=== PATIENT | female | born 1975 | race Caucasian/White ===

== ENCOUNTER 2019-09-25 14:29 | Emergency (ER) | payer SELFPAY ==
[2019-09-25 15:13] VITALS: BP 140/88; PULSE 93; RESP 16; TEMP 37.1; O2SAT 97; BMI 28.0
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
--- NOTE | 2019-09-25 16:19 | DCPLANNER ---
[employer] manager was asked to speak with patient about different rehab centers. [employer] manager gave patient a list of different rehab centers, and the phone number to AA in [place].
[2019-09-25 16:46] VITALS: PULSE 80; RESP 18; O2SAT 98
== END 2019-09-25 16:52 | disposition home or self-care (01) ==
PROVIDERS: Emergency Provider Family Medicine; Family Provider Nurse Practitioner; PCP Nurse Practitioner
DX: F10.10 Alcohol abuse, uncomplicated (principal); F41.8 Other specified anxiety disorders
CPT/HCPCS: 99281

== ENCOUNTER 2019-09-25 14:57 | Emergency (ER) | payer SELFPAY | END 2019-09-25 15:25 | LOC: ER 10-03 07:45 | PROVIDERS: Emergency Provider Physician Assistant; Family Provider Nurse Practitioner; PCP Nurse Practitioner | DX: Z53.21 Procedure and treatment not carried out due to patient leaving prior to being seen by health care provider (principal) | CPT/HCPCS: 99281 ==

== ENCOUNTER 2019-12-18 23:40 | Emergency (ER) | payer SELFPAY ==
[2019-12-18 23:56] VITALS: BP 121/71; PULSE 75; RESP 14; TEMP 36.4; O2SAT 99; BMI 29.2
== END 2019-12-19 01:32 ==
LOC: ER 12-19 00:19
PROVIDERS: Emergency Provider Nurse Practitioner Family; Family Provider Nurse Practitioner; PCP Nurse Practitioner
DX: Z53.21 Procedure and treatment not carried out due to patient leaving prior to being seen by health care provider (principal)
CPT/HCPCS: 99281

== ENCOUNTER 2020-04-29 09:05 | Emergency (ER) | payer MEDICAID, SELFPAY ==
[2020-04-29 09:24] VITALS: BP 122/85; PULSE 74; RESP 16; TEMP 36; O2SAT 97; BMI 27.4
== END 2020-04-29 09:35 | disposition left against medical advice (07) ==
LOC: ER 09:43
PROVIDERS: PCP Nurse Practitioner
DX: Z53.21 Procedure and treatment not carried out due to patient leaving prior to being seen by health care provider (principal)
CPT/HCPCS: 99281

== ENCOUNTER 2020-05-12 18:09 | Emergency (ER) | payer MEDICAID, SELFPAY ==
[2020-05-12 18:28] VITALS: BP 153/86; PULSE 85; RESP 16; TEMP 36.3; O2SAT 98; BMI 28.5
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
== END 2020-05-12 19:14 | disposition home or self-care (01) ==
PROVIDERS: Emergency Provider Physician Assistant; PCP Physician Assistant
DX: M54.5 Low back pain (principal); Z86.19 Personal history of other infectious and parasitic diseases
CPT/HCPCS: 12345; 99281; 99282

== ENCOUNTER 2020-05-21 19:52 | Emergency (ER) | payer MEDICAID, SELFPAY ==
[2020-05-21 19:59] VITALS: BP 157/106; PULSE 87; RESP 18; TEMP 36.7; O2SAT 98; BMI 27.2
--- NOTE | 2020-05-21 20:09 | XRR_ITS ---
PROCEDURE INFORMATION: Exam: XR Chest, 1 View Exam date and time: 05/21/2020 8:50 PM Age: 44 years old Clinical indication: Shortness of breath; Chest pain; Patient HX: Cp, weakness, SOB, increased hr, lower back pain TECHNIQUE: Imaging protocol: XR of the chest Views: 1 view. COMPARISON: CR Chest 1 [place] [id number] 02/08/2019 1:10 AM FINDINGS: Lungs: Unremarkable. No consolidation. Pleural space: Unremarkable. No pleural effusion. No pneumothorax. Heart/Mediastinum: Unremarkable. No cardiomegaly. Bones/joints: Unremarkable. XR/XR chest 1V portable [id number] IMPRESSION: No acute findings.
--- NOTE | 2020-05-21 20:09 | ECG_ITS ---
[facility] Test Date: 2020-05-21 Pat Name: Alondra Lange Department: Room: Gender: Female Surgical Pathologist: : 1975 Requested By: Sebas Cardenas Order Number: [id number] Suzanna MD: Mateus Hanna M.D. Measurements Intervals [place] Rate: 80 P: 77 MN: 181 QRS: 53 QRSD: 86 T: 46 QT: 371 QTc: 428 Interpretive Statements SINUS RHYTHM WITH SINUS ARRHYTHMIA POSSIBLE LEFT ATRIAL ENLARGEMENT [-0.1mV P WAVE IN V1/V2] Compared to ECG 02/08/2019 00:40:35 No significant changes Electronically Signed On 05-23-2020 20:31:11 CDT by Mateus Hanna M.D. [email or web address] [facility]urecop[facility] centerAgenusselect [facility].[employer]/store/OM/[id number]
[2020-05-21 21:42] VITALS: BP 146/96; PULSE 89; RESP 12; O2SAT 96
[2020-05-21 21:49] LABS: Basophils % 0.4 %; Eosinophils # 0.1 10^3/uL (0.0-0.8); Eosinophils % 0.8 %; Hematocrit 40.3 % (37.0-47.0); Hemoglobin 13.3 g/dL (11.5-15.3); Lymphocytes # 2.4 10^3/uL (0.8-4.8); Lymphocytes % 28.9 %; Mean Corpuscular Hemoglobin 31.1 pg (28.0-34.0); Mean Corpuscular Volume 94.4 fL (81-99); Monocytes # 0.7 10^3/uL (0.2-0.9); Monocytes % 7.7 %; Neutrophils # 5.21 10^3/uL (1.8-7.7); Neutrophils % 62.1 %; Nucleated Red Blood Cells % 0 %; Platelet Count 318 10^3/cmm (130-400); Red Blood Count 4.27 10^6/uL (4.1-5.3); Red Cell Distribution Width 12.2 % (12.1-15.1); White Blood Count 8.4 10^3/uL (4.0-10.0)
[2020-05-21 22:02] VITALS: PULSE 83; RESP 10; O2SAT 99
[2020-05-21 22:06] LABS: Alanine Aminotransferase 12 U/L (0-33); Albumin Level 4.9 g/dL (3.5-5.2); Alkaline Phosphatase 50 IU/L (35-105); Anion Gap 14.9 (5-19); Aspartate Amino Transferase 18 U/L (0-32); Blood Urea Nitrogen 11 mg/dL (6-20); Calcium 10.3 mg/dL (8.5-10.5); Carbon Dioxide 23 mmol/L (22-29); Chloride 104 mmol/L (98-107); Globulin 2.2 g/dL (1.3-4.6); Glomerular Filtration Rate 108.6 mL/min (90-130); Glucose 105 mg/dL (65-115); Osmolality Calculated 286 mOsm/kg (285-295); Potassium 3.9 mmol/L (3.5-5.1); Sodium 138 mmol/L (136-145); Total Bilirubin 0.2 mg/dL (0.15-1.2); Total Protein 7.1 g/dL (6.6-8.7)
[2020-05-21 22:09] LABS: Troponin(5th) Baseline 6 ng/L (0-10)
[2020-05-21 22:59] VITALS: PULSE 78; RESP 16; O2SAT 98
--- NOTE | 2020-05-21 23:41 | W.ED.CHESTPA ---
HPI - Chest Pain General: Chief Complaint: Chest Pain Stated Complaint: cp Time Seen by Provider: 05/21/20 21:36 History of Present Illness: HPI narrative: 44-year-old female with history of anxiety. She presents with chest discomfort and palpitations, on and off. They were worse this evening. She notes that is somewhat related to smoking marijuana as she has had a couple of episodes today after smoking. She recently received medical marijuana for some pain related to a back injury. She describes palpitations more than pain, although she has pain at times. She gets short of breath when these palpitations come on. Currently she is feeling a bit improved. She has not had any cough, fever, sputum production. She notes that she has family members with WPW. MD complaint: chest pain and chest discomfort Associated symptoms: Reports palpitations; Deny abdominal pain, dyspnea, fever(s), nausea or vomiting Review of Systems Const: Denies: fever(s) or chills ENMT: Denies: odynophagia, swelling of lips/tongue, epistaxis or sinus pain Card: Reports: chest pain, palpitations and dyspnea on exertion; Denies: irregular heart rhythm, edema, swelling of feet/ankles or orthopnea Resp: Denies: dyspnea, productive cough, non-productive cough or wheezing GI: Denies: abdominal pain, nausea or vomiting : Denies: dysuria, urinary frequency, urinary urgency or hematuria Musc: Reports: back pain; Denies: neck pain or joint redness Skin/Breast: Denies: rash or erythema Neuro: Denies: headache(s), dizziness or vertigo Psych: Reports: anxiety PFSH ED PFSH: Medical History (Updated 05/21/20 @ 22:48 by Silviano Carlin DO) Chronic pain Chronic pain disorder Gastroenteritis Genital herpes Glycosuria Hepatitis C History of endometrial hyperplasia Surgical History History of tonsillectomy and adenoidectomy Hx of hysterectomy Hx of tubal ligation Family History Other Cancer Heart disease Social History Smoking and tobacco status: never smoked Alcohol intake: former Current occupation: unemployed History of recent travel: No Physical Exam Const: GENERAL APPEARANCE: well developed ORIENTATION/CONSCIOUSNESS: Yes oriented to person, Yes oriented to place and Yes oriented to time HENMT: COMMON NORMALS: normocephalic, external ears normal and Normal external nose present HEAD & SCALP: normocephalic NOSE: Normal external nose present and No nasal discharge present EXTERNAL EAR: Yes external ears normal Eye: COMMON NORMALS: Equal, round and reactive pupils present, EOMs intact bilaterally and conjunctivae normal EYELID: eyelids normal CONJUNCTIVA: Yes conjunctivae normal PUPIL: Yes Equal, round and reactive pupils present Neck/C-Spine: GENERAL: No tracheal deviation Chest: COMMONS NORMALS: normal inspection of the chest CHEST: No tenderness Resp: COMMON NORMALS: clear to auscultation bilaterally EFFORT & INSPECTION: No tachypneic, No respiratory distress, No retractions, No uses accessory muscles and No tracheal deviation AUSCULTATION: clear to auscultation bilaterally, no rhonchi, no wheezes and lung sounds not diminished Cardio: COMMON NORMALS: regular rate and regular rhythm RATE: regular rate RHYTHM: regular rhythm HEART SOUNDS: no murmurs PERIPHERAL PULSES: radial pulses present GI: INSPECTION: No abdominal distension AUSCULTATION: No Hyperactive bowel sounds present and No Hypoactive bowel sounds present PALPATION: No Guarding due to palpation present (GI) and No Rigid due to palpation PERCUSSION: no dullness to percussion and no tympanic to percussion Neuro: SENSORIUM/ORIENTATION: Yes oriented to person, Yes oriented to place and Yes oriented to time Psych: COMMON NORMALS: mental status grossly normal Skin: COMMON NORMALS: no rashes or lesions noted GENERAL SKIN EXAM: no rashes or lesions noted Course Vital Signs: Vital signs: Vital Signs Temperature 98.1 F 05/21/20 19:59 Pulse Rate 78 05/21/20 22:59 Respiratory Rate 16 05/21/20 22:59 Blood Pressure 146/96 05/21/20 21:42 Pulse Oximetry 98 05/21/20 22:59 MDM - Chest Pain MDM Narrative: Medical decision making narrative: Patient has been here more than 2 hours prior to the lab being drawn. Her troponin II hours is normal. EKG shows a sinus rhythm not acute ST change. If you leads, there appears to be a welted type wave, but the NH interval is not shortened and this is not present in every lead. He does have a family history of WPW she says. White blood cell count is 8.4. Hemoglobin 13. Other labs are normal. This x-ray is normal. Because of her family history, and slight EKG change, she will be ordered an outpatient event monitor to be worn. There is a chance she could be experiencing a reentrant rhythm that self terminates. She knows to return for any new or worsening symptoms. Lab Data: Labs: Lab Results 05/21/20 05/21/20 05/21/20 Range/Units 21:41 21:41 21:41 WBC 8.4 (4.0-10.0) 10^3/ uL RBC 4.27 (4.1-5.3) 10^6/u L Hgb 13.3 (11.5-15.3) g/dL Hct 40.3 (37.0-47.0) % MCV 94.4 (81-99) fL MCH 31.1 (28.0-34.0) pg MCHC 33.0 (30.0-36.0) g/dL RDW 12.2 (12.1-15.1) % Plt Count 318 (130-400) 10^3/c mm MPV 10.0 (7.4-10.4) fL Neut % (Auto) 62.1 % Lymph % (Auto) 28.9 % Coke % (Auto) 7.7 % Eos % (Auto) 0.8 % Baso % (Auto) 0.4 % Neut # (Auto) 5.21 (1.8-7.7) 10^3/u L Lymph # (Auto) 2.4 (0.8-4.8) 10^3/u L Coke # (Auto) 0.7 (0.2-0.9) 10^3/u L Eos # (Auto) 0.1 (0.0-0.8) 10^3/u L Baso # (Auto) 0.0 (0.0-0.1) 10^3/u L Nucleated RBC % (a uto) 0 % Nucleated RBCs # 0.0 /100WBC Sodium 138 (136-145) mmol/L Potassium 3.9 (3.5-5.1) mmol/L Chloride 104 (98-107) mmol/L Carbon Dioxide 23 (22-29) mmol/L Anion Gap 14.9 (5-19) BUN 11 (6-20) mg/dL Creatinine 0.6 (0.5-0.9) mg/dL GFR Calculation 108.6 (90-130) mL/min Glucose 105 (65-115) mg/dL Calculated Osmolal ity 286 (285-295) mOsm/k g Calcium 10.3 (8.5-10.5) mg/dL Total Bilirubin 0.2 (0.15-1.2) mg/dL AST 18 (0-32) U/L ALT 12 (0-33) U/L Alkaline Phosphata se 50 (35-105) IU/L Troponin T Baselin e 6 (0-10) ng/L Total Protein 7.1 (6.6-8.7) g/dL Albumin 4.9 (3.5-5.2) g/dL Globulin 2.2 (1.3-4.6) g/dL Discharge Plan Discharge Patient Disposition: Home Clinical Impression: Chest pain Qualifiers: Chest pain type: unspecified Qualified Code(s): R07.9 - Chest pain, unspecified Condition: Stable Prescriptions: No Action Medical Marijuana See Rx Instructions .ROUTE .COMPLEX RF: 0 cyclobenzaprine 5 mg tablet 5 mg PO BEDTIME RF: 0 Discharge Orders: Discharge Order (Routine); Ordered 05/21/20 Ordered By: Silviano Carlin Referrals: Jazmin Giron PA-C [Primary Care Provider] - 4-7 days Patient Instructions: Chest Pain (ED), Palpitations (ED) Activity Restrictions/Additional Instructions: Consider abstaining from marijuana use, as it may be a cause of your symptoms. An outpatient event monitor will be ordered for you. You should get a call from case management on Sunday or Sunday for an appointment to come get fitted. Results should go to your primary physician. Discharge Date/Time: 05/21/20 23:01 Coding Level of Care Code ED Underwriting Internship for Tu Amezcua
--- NOTE | 2020-05-29 08:44 | DCPLANNER ---
Patient has an appointment scheduled for Monday, June 01, 2020 at 1:30 with [facility].
--- NOTE | 2020-06-11 16:18 | DCPLANNER ---
Patient had a follow up appointment scheduled for 06.01.20 with [facility] for an event monitor - patient did not attend appointment.
== END 2020-05-21 23:01 | disposition home or self-care (01) ==
PROVIDERS: Emergency Medicine; Emergency Provider Emergency Medicine; PCP Physician Assistant
DX: R07.9 Chest pain, unspecified (principal); Z86.19 Personal history of other infectious and parasitic diseases
CPT/HCPCS: 12345; 36415; 71045; 80053; 84484; 85025; 93005; 99281; 99283

== ENCOUNTER 2020-05-23 15:57 | Emergency (ER) | payer MEDICAID, SELFPAY ==
--- NOTE | 2020-05-23 16:04 | XRR_ITS ---
PROCEDURE INFORMATION: Exam: XR Chest, 1 View Exam date and time: 05/23/2020 4:10 PM Age: 44 years old Clinical indication: Chest pain; Type not specified; Additional info: Cp TECHNIQUE: Imaging protocol: XR of the chest Views: 1 view. COMPARISON: CR XR chest 1V portable [id number] 05/21/2020 8:40 PM FINDINGS: Lungs: Unremarkable. No consolidation. Pleural space: Unremarkable. No pleural effusion. No pneumothorax. Heart/Mediastinum: Unremarkable. No cardiomegaly. Bones/joints: Unremarkable. XR/XR chest 1V portable [id number] IMPRESSION: No acute findings.
[2020-05-23 16:25] VITALS: BP 131/88; PULSE 118; RESP 14; TEMP 36.9; O2SAT 98; BMI 26.4
--- NOTE | 2020-05-23 17:48 | ED_ITS ---
HPI - Arrhythmia/Palpitations General: Chief Complaint: Arrhythmia/Palpitations Stated Complaint: RAPID HEART RATE Time Seen by Provider: 05/23/20 17:20 History of Present Illness: HPI narrative: 44-year-old female presents with palpitations. She reports that she had them earlier today. Patient was seen 2 days ago for the exact same symptoms. Both times it started after she used some of her medical marijuana. Patient reports her symptoms are now better. Patient had a significant negative work-up 2 days ago. She denies any other drug use. Patient denies any shortness of breath, fever, chills, cough or other systemic complaints. MD complaint: rapid heart beat and palpitations Associated symptoms: Reports anxiety; Deny nausea or vomiting Review of Systems Const: Denies: fever(s) or chills Card: Reports: palpitations; Denies: chest pain, irregular heart rhythm or lightheadedness Resp: Denies: dyspnea, productive cough, non-productive cough, wheezing or pain on inspiration GI: Denies: abdominal pain, nausea or vomiting : Denies: flank pain Skin/Breast: Denies: rash or pruritus Neuro: Denies: headache(s) or numbness in extremities Psych: Reports: anxiety All/Imm: Denies: urticaria or throat swelling PFSH ED PFSH: Medical History Chronic pain Chronic pain disorder Gastroenteritis Genital herpes Glycosuria Hepatitis C History of endometrial hyperplasia Surgical History History of tonsillectomy and adenoidectomy Hx of hysterectomy Hx of tubal ligation Family History Other Cancer Heart disease Social History Smoking and tobacco status: never smoked Alcohol intake: former Current occupation: unemployed History of recent travel: No Physical Exam Const: COMMON NORMALS: no acute distress, average body habitus and patient oriented x3 HENMT: COMMON NORMALS: normocephalic and atraumatic HEAD & SCALP: normocephalic and atraumatic Neck/C-Spine: COMMON NORMALS: full ROM and no meningeal signs Resp: COMMON NORMALS: normal respiratory effort, No retractions, No use of accessory muscles and clear to auscultation bilaterally AUSCULTATION: clear to auscultation bilaterally Cardio: COMMON NORMALS: regular rate, regular rhythm and Peripheral pulses 2+ throughout RATE: regular rate RHYTHM: regular rhythm PERIPHERAL PULSES: Peripheral pulses 2+ throughout GI: COMMON NORMALS: Normal to inspection, nondistended, normoactive bowel sounds present, Soft to palpation and non-tender PALPATION: Yes Soft to palpation : COMMON NORMALS: Yes no CVA tenderness BLADDER/KIDNEY EXAM: Yes no CVA tenderness Back/Pelvis: COMMON NORMALS: no CVA tenderness Neuro: COMMON NORMALS: patient oriented x3, CN's II-XII intact bilaterally, moves all extremities and no focal motor deficits MENINGEAL SIGNS: Yes no meningeal signs Psych: COMMON NORMALS: mental status grossly normal and speech normal APPEARANCE: Yes grossly normal SPEECH: Yes normal speech MOOD & AFFECT: Yes anxious Skin: COMMON NORMALS: no rashes or lesions noted GENERAL SKIN EXAM: no rashes or lesions noted Course Vital Signs: Vital signs: Vital Signs Temperature 98.4 F 05/23/20 16:25 Pulse Rate 89 05/23/20 19:35 Respiratory Rate 18 05/23/20 19:35 Blood Pressure 132/89 05/23/20 19:35 Pulse Oximetry 98 05/23/20 19:35 MDM - Arrhythmia/Palpitations MDM Narrative: Medical decision making narrative: Patient with no acute findings on EKG, labs. Patient symptoms similar to 2 days ago. Discussed with her is likely a result of her medical marijuana use and her anxiety. I recommend she follow-up with her prescribing physician to discuss the side effects. Patient is otherwise stable and will be discharged home Lab Data: Labs: Lab Results 05/23/20 05/23/20 05/23/20 Range/Units 17:47 17:47 17:47 WBC 7.6 (4.0-10.0) 10^3/ uL RBC 4.52 (4.1-5.3) 10^6/u L Hgb 14.1 (11.5-15.3) g/dL Hct 43.4 (37.0-47.0) % MCV 96.0 (81-99) fL MCH 31.2 (28.0-34.0) pg MCHC 32.5 (30.0-36.0) g/dL RDW 12.2 (12.1-15.1) % Plt Count 315 (130-400) 10^3/c mm MPV 10.4 (7.4-10.4) fL Neut % (Auto) 72.0 % Lymph % (Auto) 19.5 % Crisp % (Auto) 7.1 % Eos % (Auto) 0.8 % Baso % (Auto) 0.3 % Neut # (Auto) 5.48 (1.8-7.7) 10^3/u L Lymph # (Auto) 1.5 (0.8-4.8) 10^3/u L Crisp # (Auto) 0.5 (0.2-0.9) 10^3/u L Eos # (Auto) 0.1 (0.0-0.8) 10^3/u L Baso # (Auto) 0.0 (0.0-0.1) 10^3/u L Nucleated RBC % (a uto) 0 % Nucleated RBCs # 0.0 /100WBC Sodium 141 (136-145) mmol/L Potassium 4.3 (3.5-5.1) mmol/L Chloride 104 (98-107) mmol/L Carbon Dioxide 25 (22-29) mmol/L Anion Gap 16.3 (5-19) BUN 10 (6-20) mg/dL Creatinine 0.7 (0.5-0.9) mg/dL GFR Calculation 90.9 (90-130) mL/min Glucose 106 (65-115) mg/dL Calculated Osmolal ity 291 (285-295) mOsm/k g Calcium 9.9 (8.5-10.5) mg/dL Magnesium 2.0 (1.7-2.3) mg/dL Total Bilirubin 0.2 (0.15-1.2) mg/dL AST 18 (0-32) U/L ALT 14 (0-33) U/L Alkaline Phosphata se 54 (35-105) IU/L Troponin T Baselin e 6 (0-10) ng/L Total Protein 7.6 (6.6-8.7) g/dL Albumin 5.2 (3.5-5.2) g/dL Globulin 2.4 (1.3-4.6) g/dL TSH 0.66 (0.27-4.20) uIU/ mL Discharge Plan Discharge Patient Disposition: Home Clinical Impression: Palpitations, Anxiety, Marijuana use Condition: Stable Prescriptions: No Action Medical Marijuana See Rx Instructions .ROUTE .COMPLEX RF: 0 cyclobenzaprine 5 mg tablet 5 mg PO BEDTIME RF: 0 Discharge Orders: Discharge Order (Routine); Ordered 05/23/20 Ordered By: León Murray Referrals: Jazmin Giron PA-C [Primary Care Provider] - Discharge Diet: Regular Discharge Activity: Resume usual activity Patient Instructions: Palpitations (ED), Medicinal Use of Cannabis (ED), Anxiety (ED) Activity Restrictions/Additional Instructions: Follow-up with your primary care provider in 2 to 3 days for continuation of care and recheck of today's symptoms Discharge Date/Time: 05/23/20 19:39 Coding Level of Care Code ED Transportation Economics Teacher for Tu Fwd Exam Comprehensive
[2020-05-23 17:55] LABS: Basophils % 0.3 %; Eosinophils # 0.1 10^3/uL (0.0-0.8); Eosinophils % 0.8 %; Hematocrit 43.4 % (37.0-47.0); Hemoglobin 14.1 g/dL (11.5-15.3); Lymphocytes # 1.5 10^3/uL (0.8-4.8); Lymphocytes % 19.5 %; Mean Corpuscular HGB Conc 32.5 g/dL (30.0-36.0); Mean Corpuscular Hemoglobin 31.2 pg (28.0-34.0); Mean Platelet Volume 10.4 fL (7.4-10.4); Monocytes # 0.5 10^3/uL (0.2-0.9); Monocytes % 7.1 %; Neutrophils # 5.48 10^3/uL (1.8-7.7); Nucleated Red Blood Cells % 0 %; Platelet Count 315 10^3/cmm (130-400); Red Blood Count 4.52 10^6/uL (4.1-5.3); Red Cell Distribution Width 12.2 % (12.1-15.1); White Blood Count 7.6 10^3/uL (4.0-10.0)
[2020-05-23 18:22] LABS: Troponin(5th) Baseline 6 ng/L (0-10)
[2020-05-23 18:32] LABS: Alanine Aminotransferase 14 U/L (0-33); Albumin Level 5.2 g/dL (3.5-5.2); Alkaline Phosphatase 54 IU/L (35-105); Aspartate Amino Transferase 18 U/L (0-32); Blood Urea Nitrogen 10 mg/dL (6-20); Calcium 9.9 mg/dL (8.5-10.5); Carbon Dioxide 25 mmol/L (22-29); Chloride 104 mmol/L (98-107); Globulin 2.4 g/dL (1.3-4.6); Glomerular Filtration Rate 90.9 mL/min (90-130); Glucose 106 mg/dL (65-115); Osmolality Calculated 291 mOsm/kg (285-295); Sodium 141 mmol/L (136-145); Thyroid Stimulating Hormone 0.66 uIU/mL (0.27-4.20); Total Bilirubin 0.2 mg/dL (0.15-1.2); Total Protein 7.6 g/dL (6.6-8.7)
[2020-05-23 18:41] LABS: Anion Gap 16.3 (5-19); Potassium 4.3 mmol/L (3.5-5.1)
[2020-05-23 19:35] VITALS: BP 132/89; PULSE 89; RESP 18; O2SAT 98
--- NOTE | 2020-05-23 22:04 | ECG_ITS ---
[facility] Test Date: 2020-05-23 Pat Name: Alondra Lange Department: Room: Gender: Female Final Cleaner: ANH FREEMANB: 1975 Requested By: Marlee Kyle Order Number: [id number] Suzanna MD: Mateus Hanna M.D. Measurements Intervals [place] Rate: 105 P: 80 WA: 136 QRS: 55 QRSD: 85 T: 52 QT: 328 QTc: 434 Interpretive Statements SINUS TACHYCARDIA NONSPECIFIC T-WAVE ABNORMALITY ABNORMAL RHYTHM ECG Compared to ECG 05/21/2020 20:26:01 T-wave abnormality now present Sinus rhythm no longer present Sinus arrhythmia no longer present Electronically Signed On 05-24-2020 17:43:02 CDT by Mateus Hanna M.D. [id number]
--- NOTE | 2020-05-24 15:17 | DCPLANNER ---
e commerce project manager had message to schedule an outpatient event monitor for patient. e commerce project manager faxed order to [facility], clinic will call patient with appointment information.
== END 2020-05-23 19:39 | disposition home or self-care (01) ==
PROVIDERS: Registered Nurse; Emergency Provider Student in an Organized Health Care Education/Training Program; PCP Physician Assistant
DX: R00.2 Palpitations (principal); F41.9 Anxiety disorder, unspecified; F12.90 Cannabis use, unspecified, uncomplicated; Z86.19 Personal history of other infectious and parasitic diseases
CPT/HCPCS: 12345; 71045; 80053; 83735; 84443; 84484; 85025; 93005; 99281; 99283

== ENCOUNTER 2020-09-09 01:33 | Emergency (ER) | payer MEDICAID, SELFPAY ==
[2020-09-09 01:40] VITALS: BP 152/80; PULSE 91; RESP 17; TEMP 36.8; O2SAT 97; BMI 25.4
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
--- NOTE | 2020-09-09 01:49 | XR_ITS ---
WS: [id number] Thoracic spine, 3 views, 09/09/2020 Clinical Data: fall; pain Comparison: Thoracic spine, 04/28/2013. Findings: No compression fractures are seen. The disc heights are normal. There is a slight dextroscoliosis of the midthoracic spine. The paravertebral regions are normal. XR/XR thoracic spine 3V* [id number] Impression: Negative thoracic spine.
== END 2020-09-09 03:03 | disposition home or self-care (01) ==
PROVIDERS: Emergency Provider Physician Assistant; PCP Physician Assistant
DX: M54.6 Pain in thoracic spine (principal); Y04.8XXA Assault by other bodily force, initial encounter; Z86.19 Personal history of other infectious and parasitic diseases
CPT/HCPCS: 12345; 72072; 99281; 99282

== ENCOUNTER 2020-10-17 18:35 | Emergency (ER) | payer MEDICAID, SELFPAY ==
[2020-10-17 18:52] VITALS: BP 122/82; PULSE 79; RESP 18; TEMP 36.6; O2SAT 97; BMI 27.0
[2020-10-17 19:11] VITALS: BP 134/83; PULSE 82; RESP 16; O2SAT 97
--- NOTE | 2020-10-17 19:14 | ED_ITS ---
HPI - Ear Problem General: Chief complaint: General Medical Stated complaint: BILATERAL EAR PAIN Time Seen by Provider: 10/17/20 18:59 Source: patient Mode of arrival: ambulatory Limitations: no limitations History of Present Illness: HPI Narrative: Patient is a 45-year-old female who presents to ED today with a complaint of bilateral brown drainage from her ears. She states they feel full. She is also complaining of pressure to her sinuses. She is reporting nasal discharge. She states she does have a history of allergies that she treats with Benadryl. Patient denies sore throat. She is not running fevers. She has not had any trauma to her ears. She is not complaining of hearing loss or tinnitus. She does not complain of dizziness or any gait abnormalities. No visual changes. Location: bilateral (R>L) Duration: constant Severity: mild Relieving factors: nothing Exacerbating factors: nothing Associated symptoms: Denies ear or mastoid pain, fever(s), headache(s), neck pain or tinnitus Treatment prior to arrival: none Review of Systems Const: Denies: fever(s), chills, body aches, change in appetite, change in weight, fatigue or malaise Eyes: Denies: change in vision, blurry vision, photophobia, floaters or seeing flashes ENMT: Reports: ear discharge, change in hearing, nasal discharge, nasal congestion and sinus pain; Denies: throat pain, odynophagia, swelling of lips/tongue, oral sores, dental pain, ear or mastoid pain, tinnitus, disequilibrium, nasal obstruction, epistaxis or post nasal drip Card: Denies: chest pain, palpitations, irregular heart rhythm, edema, swelling of feet/ankles, lightheadedness, syncope, pre-syncope, dyspnea on exertion or orthopnea Resp: Denies: dyspnea, productive cough, non-productive cough, wheezing, hemoptysis or chest congestion GI: Denies: abdominal pain, nausea, vomiting or diarrhea Musc: Denies: neck pain or back pain Skin/Breast: Denies: rash Neuro: Denies: headache(s), numbness in extremities, weakness in extremities, sensory changes, dizziness, vertigo or confusion [facility] ED PFSH: Medical History (Updated 10/17/20 @ 19:17 by RAYSA Cano) Chronic pain Chronic pain disorder Gastroenteritis Genital herpes Glycosuria Hepatitis C History of endometrial hyperplasia Surgical History History of tonsillectomy and adenoidectomy Hx of hysterectomy Hx of tubal ligation Family History Other Cancer Heart disease Social History Smoking and tobacco status: never smoked Alcohol intake: former Current occupation: unemployed History of recent travel: No Physical Exam Const: COMMON NORMALS: no acute distress, average body habitus, patient oriented x3, no limitations, healthy appearing, alert and well nourished GENERAL APPEARANCE: cooperative ORIENTATION/CONSCIOUSNESS: Yes awake, Yes oriented to person, Yes oriented to place and Yes oriented to time HENMT: COMMON NORMALS: normocephalic, atraumatic, hearing grossly normal bilaterally, external ears normal, Normal external nose present, Normal nasal mucous membranes and turbinates present, moist oral mucous membranes, oropharynx normal, dentition normal and gingiva normal HEAD & SCALP: normal to inspection, normocephalic and atraumatic FACE & SINUS: sinus tenderness frontal and maxillary NOSE: Normal external nose present and Normal nasal mucous membranes and turbinates present EXTERNAL EAR: Yes external ears normal and Yes mastoids normal EXTERNAL AUDITORY CANAL: Abnormal EAC present EAC laterality: bilateral excessive cerumen TYMPANIC MEMBRANE: TM normal on the left and TM abnormal TM laterality: right Details: fluid behind TM MOUTH: Normal oral and palatal mucosa present, lip normal and tongue normal THROAT: posterior oropharynx normal, tonsils normal and uvula midline Eye: COMMON NORMALS: Equal, round and reactive pupils present and EOMs intact bilaterally GENERAL EYE: appearance normal, both eyes and all related structures and normal light reflex PUPIL: Yes Equal, round and reactive pupils present DIRECT OPHTHALMOSCOPY: Yes normal light reflex OTHER: no nystagmus Neck/C-Spine: COMMON NORMALS: full ROM, no lymphadenopathy and no meningeal signs Neuro: EDGAR COMA SCALE: document GCS findings Edgar coma scale eye opening: Spontaneous Edgar coma scale verbal response: Orientated Edgar coma scale motor response: Obey commands [address] coma scale total score: 15 COMMON NORMALS: patient oriented x3, CN's II-XII intact bilaterally, moves all extremities, no focal motor deficits and no sensory deficits noted SENSORIUM/ORIENTATION: Yes alert, Yes oriented to person, Yes oriented to place and Yes oriented to time MENINGEAL SIGNS: Yes no meningeal signs Procedures Ear Wax Removal Both Ears: Results: Re-examined: cerumen removed completely TM Examination: TM(s) intact, normal appearance Ear Canal Exam: atraumatic Patient Tolerated Procedure: well Complications: no problems Technique: ear canal curetted Course Vital Signs: Vital signs: Vital Signs Temperature 97.8 F 10/17/20 18:52 Pulse Rate 82 10/17/20 19:11 Respiratory Rate 16 10/17/20 19:11 Blood Pressure 134/83 10/17/20 19:11 Pulse Oximetry 97 10/17/20 19:11 MDM - Ear MDM Narrative: Medical decision making narrative: Pts symptoms consistent with sinusitis. She had bilateral partial cerumen impaction that were cleaned. Serous otitis on R. Will place on Levaquin (initially RX Augmentin but she then told us she has allergy to penicillins). Return to ED precautions given. Discharge Plan Discharge Patient Disposition: Home Clinical Impression: Sinusitis Qualifiers: Sinusitis location: maxillary Chronicity: acute Recurrence: non-recurrent Qualified Code(s): J01.00 - Acute maxillary sinusitis, unspecified Acute serous otitis media Qualifiers: Laterality: right Recurrence: non-recurrent Qualified Code(s): H65.01 - Acute serous otitis media, right ear Condition: Stable Prescriptions: New levofloxacin 500 mg tablet 500 mg PO DAILY 5 Days Qty: 5 RF: 0 No Action Medical Marijuana See Rx Instructions .ROUTE .COMPLEX RF: 0 cyclobenzaprine 10 mg tablet 10 mg PO TID Qty: 14 RF: 0 Discharge Orders: Discharge ED (Routine); Ordered 10/17/20 Ordered By: Flaquita Cuevas Referrals: Haja Cortes MD [Primary Care Provider] - Coding Level of Care Code ED Laborer Drying Department for Chg Fwd Exam Detailed
== END 2020-10-17 19:40 | disposition home or self-care (01) ==
PROVIDERS: Emergency Provider Physician Assistant; PCP Family Medicine
DX: H65.01 Acute serous otitis media, right ear (principal); J01.00 Acute maxillary sinusitis, unspecified; Z86.19 Personal history of other infectious and parasitic diseases
CPT/HCPCS: 99282

== ENCOUNTER 2020-10-30 14:48 | Emergency (ER) | payer MEDICAID, SELFPAY ==
--- NOTE | 2020-10-30 15:02 | XRR_ITS ---
PROCEDURE INFORMATION: Exam: XR Left Wrist Exam date and time: 10/30/2020 3:16 PM Age: 45 years old Clinical indication: Pain; Wrist; Left; Prior surgery TECHNIQUE: Imaging protocol: XR Left wrist. Views: 3 or more views. COMPARISON: No relevant prior studies available. FINDINGS: Bones/joints: Status post osteotomy of the distal ulna. 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 Carpal bones are unremarkable. No acute or chronic joint abnormality demonstrated. Soft tissues: The soft tissues appear unremarkable. XR/XR wrist LT min 3V* [id number] IMPRESSION: 1. Status post osteotomy of the distal ulna. 2. 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 3. No acute abnormality demonstrated.
[2020-10-30 15:06] VITALS: BP 127/92; PULSE 72; RESP 16; TEMP 36.8; O2SAT 98; BMI 26.3
--- NOTE | 2020-10-30 15:36 | ED_ITS ---
HPI - Extremity Problem General: Chief complaint: Extremity Injury, Upper Stated complaint: pain/swelling in left wrist Time Seen by Provider: 10/30/20 15:02 History of Present Illness: HPI Narrative: 45-year-old female with a history of previous traumatic dislocation of the radial ulnar joint from the carpal bones resulted in surgery and she has foreshortening of the distal ulna. She has some discomfort there that is developed over the last day or 2. Denies any recurrent trauma. She used to be a heavy drinker states she has stopped. MD Complaint: extremity pain Onset (ago): day(s) Pain Consistency: constant Location: left Quality: aching Radiation: none Relieving factors: nothing Exacerbating factors: nothing Associated symptoms: Reports arthralgias; Deny chest pain, fever(s), myalgias, rash or short of breath Review of Systems Const: Denies: fever(s) ENMT: Denies: throat pain, ear or mastoid pain, nasal discharge or nasal congestion Card: Denies: chest pain Resp: Denies: dyspnea, productive cough or non-productive cough GI: Denies: abdominal pain, nausea, vomiting, hematemesis, coffee ground emesis, diarrhea, constipation, bloating, hematochezia or melena : Denies: flank pain, difficulty voiding, dysuria, urinary frequency or urinary urgency Skin/Breast: Denies: rash PFSH ED PFSH: Medical History (Updated 10/30/20 @ 15:39 by Eliceo Ramos DO) Chronic pain Chronic pain disorder Gastroenteritis Genital herpes Glycosuria Hepatitis C History of endometrial hyperplasia Surgical History History of tonsillectomy and adenoidectomy Hx of hysterectomy Hx of tubal ligation Family History Other Cancer Heart disease Social History Smoking and tobacco status: never smoked Alcohol intake: former Current occupation: unemployed History of recent travel: No Physical Exam Const: COMMON NORMALS: no acute distress GENERAL APPEARANCE: cooperative and comfortable ORIENTATION/CONSCIOUSNESS: Yes awake, Yes oriented to person, Yes oriented to place and Yes oriented to time HENMT: COMMON NORMALS: normocephalic, atraumatic and hearing grossly normal bilaterally HEAD & SCALP: normocephalic and atraumatic Neck/C-Spine: COMMON NORMALS: no JVD Resp: COMMON NORMALS: normal respiratory effort, No retractions, No use of accessory muscles and clear to auscultation bilaterally AUSCULTATION: clear to auscultation bilaterally Cardio: COMMON NORMALS: no JVD, regular rate, regular rhythm and No murmurs present (Cardio) RATE: regular rate RHYTHM: regular rhythm Extremity: NARRATIVE EXTREMITY EXAM: Moderate deformity of the left wrist due to previous surgery. There is some swelling over the distal ulna on the dorsum of the wrist. No redness no erythema. X-rays do not show any acute fracture there is a absence of the distal ulna with well-corticated terminal ulna proximal to the wrist joint. Neuro: SENSORIUM/ORIENTATION: Yes oriented to person, Yes oriented to place and Yes oriented to time Skin: COMMON NORMALS: no rashes or lesions noted GENERAL SKIN EXAM: no rashes or lesions noted Course Vital Signs: Vital signs: Vital Signs Temperature 98.2 F 10/30/20 15:06 Pulse Rate 71 10/30/20 16:07 Respiratory Rate 18 10/30/20 16:07 Blood Pressure 127/92 10/30/20 15:06 Pulse Oximetry 98 10/30/20 16:07 MDM - Extremity (Nontraumatic) MDM Narrative: Medical decision making narrative: Reviewed findings with the patient. Recommend follow-up with Ortho or with primary care if symptoms persist for now can use diclofenac. Discharge Plan Discharge Patient Disposition: Home Clinical Impression: Sprain and strain of wrist Condition: Stable Prescriptions: New diclofenac sodium 75 mg tablet,delayed release (DR/EC) 75 mg PO Q12H PRN (Reason: pain) Qty: 20 RF: 0 No Action Medical Marijuana See Rx Instructions .ROUTE .COMPLEX RF: 0 fluticasone propionate 50 mcg/actuation spray,suspension 1 - 2 spray INTRANASAL DAILY PRN (Reason: Nasal Congestion) RF: 0 Discharge Orders: Discharge ED (Routine); Ordered 10/30/20 Ordered By: Eliceo Ramos Referrals: Haja Cortes MD [Primary Care Provider] - Discharge Diet: Usual diet Discharge Activity: Limit activity as instructed Patient Instructions: Opioid Safety Activity Restrictions/Additional Instructions: Case management will call with a referral to orthopedics for further evaluation. Coding Level of Care Code ED Wellness Specialist for [facility]
[2020-10-30 16:07] VITALS: PULSE 71; RESP 18; O2SAT 98
--- NOTE | 2020-11-01 09:42 | DCPLANNER ---
manager regional sales had message to schedule a follow up appointment for patient with ortho. manager regional sales called the ortho clinic, spoke with Elza, gave clinic patients information. manager regional sales was told that patients information would be printed and reviewed. Clinic will call patient with appointment information.
--- NOTE | 2020-11-03 14:08 | DCPLANNER ---
manager care management called the ortho clinic to confirm if a follow up appointment had been scheduled for patient. manager care management spoke with Elza, was told that clinic has not been able to reach patient to schedule an appointment. manager care management called patient, and was unable to reach patient at this time.
== END 2020-10-30 16:08 | disposition home or self-care (01) ==
PROVIDERS: Emergency Provider Family Medicine; PCP Family Medicine
DX: S63.502A Unspecified sprain of left wrist, initial encounter (principal); S66.912A Strain of unspecified muscle, fascia and tendon at wrist and hand level, left hand, initial encounter; Z86.19 Personal history of other infectious and parasitic diseases; X58.XXXA Exposure to other specified factors, initial encounter
CPT/HCPCS: 73110; 99282

== ENCOUNTER 2021-04-11 05:28 | Emergency (ER) | payer MEDICAID, SELFPAY ==
[2021-04-11 05:38] VITALS: BP 96/52; PULSE 57; RESP 14; O2SAT 96; BMI 20.1
[2021-04-11 06:15] VITALS: RESP 14; O2SAT 96
--- NOTE | 2021-04-11 08:05 | W.ED.EAR ---
HPI - Ear Problem General: Chief complaint: Ear Stated complaint: Left Ear Pain Time Seen by Provider: 04/11/21 05:48 History of Present Illness: MD Complaint: ear pain Location: left ear Duration: constant Severity: moderate Relieving factors: nothing Exacerbating factors: nothing Context: other Discharge from ear: no Associated symptoms: Reports ear or mastoid pain, headache(s) and rhinorrhea; Denies fever(s) or neck pain Treatment prior to arrival: none Review of Systems Const: Denies: fever(s) ENMT: Reports: ear or mastoid pain Musc: Denies: neck pain Neuro: Reports: headache(s) [facility] ED PFSH: Medical History (Updated 04/11/21 @ 06:12 by Silviano Carlin DO) Chronic pain Chronic pain disorder Gastroenteritis Genital herpes Glycosuria Hepatitis C History of endometrial hyperplasia Surgical History History of tonsillectomy and adenoidectomy Hx of hysterectomy Hx of tubal ligation Family History Other Cancer Heart disease Social History Smoking and tobacco status: never smoked Alcohol intake: former Current occupation: unemployed History of recent travel: No Physical Exam Const: COMMON NORMALS: no acute distress GENERAL APPEARANCE: cooperative and comfortable HENMT: COMMON NORMALS: normocephalic and Normal external nose present HEAD & SCALP: normocephalic FACE & SINUS: normal facial exam NOSE: Normal external nose present EXTERNAL AUDITORY CANAL: Abnormal EAC present EAC laterality: left Details: erythema, edema and EAC tenderness TYMPANIC MEMBRANE: TM normal on the right and TM normal on the left Chest: COMMONS NORMALS: normal inspection of the chest Resp: COMMON NORMALS: normal respiratory effort and clear to auscultation bilaterally AUSCULTATION: clear to auscultation bilaterally Cardio: COMMON NORMALS: regular rate and regular rhythm RATE: regular rate RHYTHM: regular rhythm Course Vital Signs: Vital signs: Vital Signs Pulse Rate 57 L 04/11/21 05:38 Respiratory Rate 14 04/11/21 06:15 Blood Pressure 96/52 04/11/21 05:38 Pulse Oximetry 96 04/11/21 06:15 Discharge Plan Discharge Patient Disposition: Home Clinical Impression: Otitis externa Qualifiers: Otitis externa type: diffuse Chronicity: acute Laterality: left Qualified Code(s): H60.312 - Diffuse otitis externa, left ear Condition: Stable Prescriptions: New Cortisporin-TC 3.3-3-10-0.5 mg/mL drops,suspension 4 drp otic (ear) QID 7 Days Qty: 10 RF: 0 No Action adapalene [Differin] 0.3 % gel with pump 1 applic topical DAILY Qty: 45 RF: 2 tretinoin [Retin-A] 0.1 % cream 1 applic topical DAILY Qty: 45 RF: 3 Medical Marijuana See Rx Instructions .ROUTE .COMPLEX RF: 0 diclofenac sodium 75 mg tablet,delayed release (DR/EC) 75 mg PO Q12H PRN (Reason: pain) Qty: 20 RF: 0 Discharge Orders: Discharge ED (Routine); Ordered 04/11/21 Ordered By: Silviano Carlin Referrals: Haja Cortes MD [Primary Care Provider] - 4-7 days Discharge Diet: Advance as tolerated Discharge Activity: Increase activity as tolerated Patient Instructions: Otitis Externa (ED) Coding Level of Care Code ED [employer]led 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
== END 2021-04-11 06:16 | disposition home or self-care (01) ==
PROVIDERS: Emergency Provider Emergency Medicine; PCP Family Medicine
DX: H60.312 Diffuse otitis externa, left ear (principal)
CPT/HCPCS: 99281

== ENCOUNTER 2021-04-23 06:31 | Emergency (ER) | payer MEDICAID, SELFPAY ==
[2021-04-23 06:36] VITALS: BP 120/79; PULSE 68; RESP 16; TEMP 36.6; O2SAT 96; BMI 26.9
--- NOTE | 2021-04-23 06:57 | XRR_ITS ---
PROCEDURE INFORMATION: Exam: XR Left Wrist Exam date and time: 04/23/2021 6:57 AM Age: 45 years old Clinical indication: Pain; Wrist; Left; Prior surgery TECHNIQUE: Imaging protocol: XR Left wrist. Views: 3 or more views. COMPARISON: No relevant prior studies available. FINDINGS: Bones/joints: There are postoperative changes of resection of the distal ulna and deformity of the distal radius compatible with underlying Madelung deformity, old trauma and/or postoperative changes. No acute fracture or dislocation. No osteomyelitis or bony destruction. There are moderate degenerative changes at the radiocarpal articulation. Soft tissues: There is soft tissue edema over the dorsum of the forearm and wrist. No foreign body. XR/XR wrist LT min 3V* [id number] IMPRESSION: 1. No acute fracture or dislocation. 2. Postoperative changes and chronic findings are also noted as above.
[2021-04-23 06:59] VITALS: RESP 17
--- NOTE | 2021-04-23 07:02 | W.ED.EXTPRO ---
HPI - Extremity Problem General: Chief complaint: Extremity Problem,Nontraumatic Stated complaint: L wrist pain Time Seen by Provider: 04/23/21 06:57 History of Present Illness: HPI Narrative: 45-year-old female comes in complaining of left wrist pain. She previously fractured left wrist began after she lifted and moved some things yesterday no new trauma no falls. She is taken some Tylenol for it still complaining of discomfort. No loss of sensation. MD Complaint: extremity pain Onset (ago): day(s) Pain Consistency: constant Location: left Quality: aching Radiation: none Relieving factors: immobilization and rest Exacerbating factors: weight bearing Associated symptoms: Reports arthralgias; Deny chest pain, fever(s), myalgias, rash or short of breath Review of Systems Const: Denies: fever(s) ENMT: Denies: throat pain, ear or mastoid pain, nasal discharge or nasal congestion Card: Denies: chest pain Resp: Denies: dyspnea, productive cough or non-productive cough GI: Denies: abdominal pain, nausea, vomiting, hematemesis, coffee ground emesis, diarrhea, constipation, bloating, hematochezia or melena : Denies: flank pain, difficulty voiding, dysuria, urinary frequency or urinary urgency Skin/Breast: Denies: rash PFSH ED PFSH: Medical History Chronic pain Chronic pain disorder Gastroenteritis Genital herpes Glycosuria Hepatitis C History of endometrial hyperplasia Surgical History History of tonsillectomy and adenoidectomy Hx of hysterectomy Hx of tubal ligation Family History Other Cancer Heart disease Social History Smoking and tobacco status: never smoked Alcohol intake: former Current occupation: unemployed History of recent travel: No Physical Exam Const: COMMON NORMALS: no acute distress GENERAL APPEARANCE: cooperative and comfortable ORIENTATION/CONSCIOUSNESS: Yes awake, Yes oriented to person, Yes oriented to place and Yes oriented to time HENMT: COMMON NORMALS: normocephalic, atraumatic and hearing grossly normal bilaterally HEAD & SCALP: normocephalic and atraumatic Neck/C-Spine: COMMON NORMALS: no JVD Resp: COMMON NORMALS: normal respiratory effort, No retractions, No use of accessory muscles and clear to auscultation bilaterally AUSCULTATION: clear to auscultation bilaterally Cardio: COMMON NORMALS: no JVD, regular rate, regular rhythm and No murmurs present (Cardio) RATE: regular rate RHYTHM: regular rhythm Neuro: SENSORIUM/ORIENTATION: Yes oriented to person, Yes oriented to place and Yes oriented to time Skin: COMMON NORMALS: no rashes or lesions noted GENERAL SKIN EXAM: no rashes or lesions noted Course Vital Signs: Vital signs: Vital Signs Temperature 97.8 F 04/23/21 06:36 Pulse Rate 68 04/23/21 06:36 Respiratory Rate 17 04/23/21 08:02 Blood Pressure 120/79 04/23/21 06:36 Pulse Oximetry 96 04/23/21 06:36 MDM - Extremity (Nontraumatic) MDM Narrative: Medical decision making narrative: Rest anti-inflammatories. If no improvement follow-up with primary care or Ortho. She has a chronic deformity of the wrist that is playing a factor in this. Discharge Plan Discharge Patient Disposition: Home Clinical Impression: Left wrist pain Condition: Stable Prescriptions: New diclofenac sodium 75 mg tablet,delayed release (DR/EC) 75 mg PO Q12H PRN (Reason: pain) Qty: 20 RF: 0 No Action tretinoin [Retin-A] 0.1 % cream 1 applic topical DAILY Qty: 45 RF: 3 Medical Marijuana See Rx Instructions .ROUTE .COMPLEX RF: 0 Discharge Orders: Discharge ED (Routine); Ordered 04/23/21 Ordered By: Eliceo Ramos Referrals: Haja Cortes MD [Primary Care Provider] - Patient Instructions: Opioid Safety Activity Restrictions/Additional Instructions: Symptoms persist follow-up with your PCP or orthopedist. Avoid heavy lifting with the left hand until improved. Stand Alone Forms: Work/School Release Coding Level of Care Code ED Communications Editor for [facility]
[2021-04-23 08:02] VITALS: RESP 17
== END 2021-04-23 08:02 | disposition home or self-care (01) ==
PROVIDERS: Emergency Provider Family Medicine; PCP Family Medicine
DX: M25.532 Pain in left wrist (principal); Z86.19 Personal history of other infectious and parasitic diseases
CPT/HCPCS: 73110; 99281

== ENCOUNTER 2021-04-26 23:58 | Emergency (ER) | payer MEDICAID, SELFPAY ==
[2021-04-27 00:05] VITALS: BP 114/78; PULSE 76; RESP 18; TEMP 36.6; O2SAT 96; BMI 25.9
[2021-04-27 00:44] VITALS: RESP 20
--- NOTE | 2021-04-27 01:27 | W.ED.GENADLT ---
HPI - General Adult General: Chief complaint: Shortness of Breath/Dyspnea Stated complaint: Breathed Deodorant [place] or Freon\Coughing Time Seen by Provider: 04/27/21 00:14 History of Present Illness: HPI narrative: Patient states he was in a small room in an RV and she is sprayed her deodorant on and she if felt like she had a coughing fit and felt anxious after doing that. 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 complaint: Chemical irritant. Onset (ago): hour(s) Associated symptoms: Reports no associated symptoms and dyspnea (Shortness of breath is improved.); Deny chest pain, headache(s), nausea, rash or vomiting Review of Systems Const: Denies: fever(s), chills or body aches Eyes: Denies: change in vision or blurry vision ENMT: Denies: throat pain or nasal congestion Card: Denies: chest pain or dyspnea on exertion Resp: Reports: dyspnea (Shortness of breath is improved.), non-productive cough (Cough is gone.) and other (Patient said spray on deodorant made her feel anxious and felt like she had); Denies: productive cough GI: Denies: abdominal pain, nausea or vomiting Musc: Denies: extremity pain Skin/Breast: Denies: rash Neuro: Denies: headache(s) Psych: Reports: anxiety; Denies: depression Jarad/Lymph: Denies: easy bruising PFSH ED PFSH: Medical History (Updated 04/27/21 @ 00:21 by JOSE Ro) Chronic pain Chronic pain disorder Gastroenteritis Genital herpes Glycosuria Hepatitis C History of endometrial hyperplasia Surgical History History of tonsillectomy and adenoidectomy Hx of hysterectomy Hx of tubal ligation Family History Other Cancer Heart disease Social History Smoking and tobacco status: never smoked Alcohol intake: former Current occupation: unemployed History of recent travel: No Physical Exam Const: COMMON NORMALS: no acute distress, average body habitus and patient oriented x3 HENMT: COMMON NORMALS: normocephalic and Normal external nose present HEAD & SCALP: normal to inspection and normocephalic FACE & SINUS: normal facial exam NOSE: Normal external nose present MOUTH: Normal oral and palatal mucosa present THROAT: posterior oropharynx normal Eye: COMMON NORMALS: conjunctivae normal GENERAL EYE: appearance normal, both eyes and all related structures CONJUNCTIVA: Yes conjunctivae normal Neck/C-Spine: COMMON NORMALS: no JVD Chest: COMMONS NORMALS: normal inspection of the chest Resp: COMMON NORMALS: normal respiratory effort, No retractions, No use of accessory muscles, clear to auscultation bilaterally and percussion normal AUSCULTATION: clear to auscultation bilaterally PERCUSSION: percussion normal Cardio: COMMON NORMALS: no JVD, regular rate and regular rhythm RATE: regular rate RHYTHM: regular rhythm GI: COMMON NORMALS: Normal to inspection, nondistended, normoactive bowel sounds present Extremity: COMMON NORMALS: normal to inspection and full ROM Neuro: COMMON NORMALS: patient oriented x3 Course Vital Signs: Vital signs: Vital Signs Temperature 97.8 F 04/27/21 00:05 Pulse Rate 76 04/27/21 00:05 Respiratory Rate 20 H 04/27/21 00:44 Blood Pressure 114/78 04/27/21 00:05 Pulse Oximetry 96 04/27/21 00:05 MDM - General Adult MDM Narrative: Medical decision making narrative: Chemical exposure. Patient stable no acute distress. Patient appears more anxious than anything. Throat was fine lungs were clear patient not having any shortness of breath. Discharge Plan Discharge Patient Disposition: Home Clinical Impression: Exposure to chemical inhalation Condition: Stable Prescriptions: No Action tretinoin [Retin-A] 0.1 % cream 1 applic topical DAILY Qty: 45 RF: 3 Medical Marijuana See Rx Instructions .ROUTE .COMPLEX RF: 0 diclofenac sodium 75 mg tablet,delayed release (DR/EC) 75 mg PO Q12H PRN (Reason: pain) Qty: 20 RF: 0 Discharge Orders: Discharge ED (Routine); Ordered 04/27/21 Ordered By: Jason Mena Discharge Diet: Usual diet Discharge Activity: Resume usual activity Activity Restrictions/Additional Instructions: Take some Benadryl when you get home. Avoid exposure to the deodorant that is spray on. Follow-up your family medical provider if no significant improvement. Or can return here. Coding Level of Care Code ED Agriculture Teacher for [facility]
== END 2021-04-27 00:35 | disposition home or self-care (01) ==
PROVIDERS: Emergency Provider Nurse Practitioner Family
DX: T49.8X1A Poisoning by other topical agents, accidental (unintentional), initial encounter (principal); Z86.19 Personal history of other infectious and parasitic diseases
CPT/HCPCS: 99281

== ENCOUNTER 2021-04-28 22:09 | Emergency (ER) | payer MEDICAID, SELFPAY ==
[2021-04-28 22:19] VITALS: BP 135/87; PULSE 72; RESP 16; TEMP 36.6; O2SAT 96; BMI 27.1
--- NOTE | 2021-04-28 22:41 | ED_ITS ---
HPI - General Adult General: Chief complaint: General Medical Stated complaint: Sinus problems Time Seen by Provider: 04/28/21 22:41 History of Present Illness: HPI narrative: 45-year-old female comes in today for complaints of nasal congestion and runny nose. 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 It also aggravates her PTSD and anxiety. 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 Patient also states that she becomes very anxious and is worried that someone will reach through the window and grabbed her. Patient does have a history of PTSD and anxiety. Patient appears well. Patient appears no acute distress. Patient does routinely take medical marijuana. Patient is very resistant to taking anything but Benadryl occasionally for her allergies. Review of Systems General: Reports: 10 or more systems reviewed and unremarkable except in HPI and below ENMT: Reports: nasal congestion and post nasal drip Psych: Reports: anxiety PFSH ED PFSH: Medical History (Updated 04/28/21 @ 22:51 by JOSE Cortés) Chronic pain Chronic pain disorder Gastroenteritis Genital herpes Glycosuria Hepatitis C History of endometrial hyperplasia Surgical History History of tonsillectomy and adenoidectomy Hx of hysterectomy Hx of tubal ligation Family History Other Cancer Heart disease Social History Smoking and tobacco status: never smoked Alcohol intake: former Current occupation: unemployed History of recent travel: No Physical Exam Const: COMMON NORMALS: no acute distress and patient oriented x3 GENERAL APPEARANCE: cooperative HENMT: COMMON NORMALS: normocephalic, TM's normal bilaterally and Normal external nose present HEAD & SCALP: normal to inspection and normocephalic NOSE: Normal external nose present and Abnormal mucous membranes and turbinates present TYMPANIC MEMBRANE: TM's normal bilaterally MOUTH: Normal oral and palatal mucosa present THROAT: posterior oropharynx normal Eye: GENERAL EYE: appearance normal, both eyes and all related structures Neck/C-Spine: COMMON NORMALS: full ROM Lymph: LYMPHATIC: no lymphadenopathy noted Chest: COMMONS NORMALS: normal inspection of the chest Resp: COMMON NORMALS: normal respiratory effort EFFORT & INSPECTION: Yes able to speak in complete sentences Cardio: COMMON NORMALS: regular rate and regular rhythm RATE: regular rate RHYTHM: regular rhythm GI: COMMON NORMALS: non-tender Extremity: COMMON NORMALS: normal to inspection Neuro: COMMON NORMALS: patient oriented x3 and moves all extremities Psych: COMMON NORMALS: cooperative and speech normal ATTITUDE: Yes calm and Yes bizarre SPEECH: Yes normal speech MOOD & AFFECT: Yes apathetic THOUGHT PROCESS: disorganized THOUGHT CONTENT: No Suicidality present and No Homicidality present ATTENTION/CONCENTRATION: Yes attention grossly intact MEMORY/COGNITION: Yes memory grossly intact INSIGHT: Fair insight present (Psych) JUDGEMENT: Fair judgement present (Psych) Skin: COMMON NORMALS: no rashes or lesions noted GENERAL SKIN EXAM: no rashes or lesions noted Course Vital Signs: Vital signs: Vital Signs Temperature 97.9 F 04/28/21 22:19 Pulse Rate 72 04/28/21 22:19 Respiratory Rate 16 04/28/21 22:19 Blood Pressure 135/87 04/28/21 22:19 Pulse Oximetry 96 04/28/21 22:19 MDM - General Adult MDM Narrative: Medical decision making narrative: 45-year-old female comes in today with complaints of nasal drainage and anxiety. 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 On exam patient has a bizarre thought process but denies any homicidal or suicidal thought. I was actually confused of why she was here until she requested a work note so she did not have to work drive-through. Differential diagnosis includes allergic rhinitis, rhinosinusitis, anxiety, adverse effect of drug. Patient does routinely take medical marijuana and I believe she might be under the influence at this time. I did go ahead and write patient a note for work requesting that they move her off drive-through so she could better manage her rhinitis and anxiety. Discharge Plan Discharge Patient Disposition: Home Clinical Impression: Anxiety, Post traumatic stress disorder (PTSD) Allergic rhinitis Qualifiers: Allergic rhinitis trigger: unspecified Allergic rhinitis seasonality: unspecified Qualified Code(s): J30.9 - Allergic rhinitis, unspecified Condition: Stable Prescriptions: No Action tretinoin [Retin-A] 0.1 % cream 1 applic topical DAILY Qty: 45 RF: 3 Medical Marijuana See Rx Instructions .ROUTE .COMPLEX RF: 0 diclofenac sodium 75 mg tablet,delayed release (DR/EC) 75 mg PO Q12H PRN (Reason: pain) Qty: 20 RF: 0 Discharge Orders: Discharge ED (Routine); Ordered 04/28/21 Ordered By: Carrington Gomez Referrals: Haja Cortes MD [Primary Care Provider] - Discharge Diet: Usual diet Discharge Activity: Increase activity as tolerated Patient Instructions: Opioid Safety Activity Restrictions/Additional Instructions: Continue with routine care. Follow-up with primary care physician for further instructions and treatment. Stand Alone Forms: Work/School Release Coding Level of Care Code ED Shelter Monitor for [facility]
== END 2021-04-28 23:06 | disposition home or self-care (01) ==
PROVIDERS: Emergency Provider Nurse Practitioner Family; PCP Family Medicine
DX: J30.9 Allergic rhinitis, unspecified (principal); F41.9 Anxiety disorder, unspecified; F43.10 Post-traumatic stress disorder, unspecified; Z86.19 Personal history of other infectious and parasitic diseases
CPT/HCPCS: 99281

== ENCOUNTER 2021-04-29 08:47 | Emergency (ER) | payer MEDICAID, SELFPAY ==
[2021-04-29 09:03] VITALS: BP 136/82; PULSE 59; RESP 15; TEMP 36.7; O2SAT 97; BMI 27.3
--- NOTE | 2021-04-29 09:10 | W.ED.ANXIETY ---
HPI - Anxiety General: Chief Complaint: Anxiety Stated Complaint: Sinus Pressure Time Seen by Provider: 04/29/21 08:55 Source: patient Mode of arrival: ambulatory Limitations: no limitations History of Present Illness: HPI narrative: 45-year-old female presents to the ER today with multiple complaints. She reports 3 days of congestion, sinus drainage, cough and fatigue. She is not taking anything for the symptoms at this time. 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 Patient denies fever, chills, sore throat, chest pain, shortness of breath, nausea, vomiting, diarrhea, constipation. Patient also reports increased anxiety. She has a history of reported PTSD but does not take anything other than medical marijuana and a half of a Benadryl daily. Patient denies SI\HI. Denies thoughts of self-harm. She reports that she recently started back to work at [employer] doing a new job and did not receive proper training. 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 She reports palpitations which are common for her when she has increased anxiety. She sees Dr. Cortes and has an appointment with him on Sunday. complaint: anxiety and heart racing Onset (ago): year(s) Symptoms: palpitations Severity: mild Quality: intermittent Place: work History of similar episodes: Yes Provoking factors: work/job stress Relieving factors: nothing Exacerbating factors: nothing Associated symptoms: Reports no associated symptoms; Deny chest pain, chills, fever(s), headache(s), nausea, palpitations or vomiting Review of Systems Const: Reports: fatigue; Denies: fever(s), chills or body aches ENMT: Reports: nasal discharge, nasal congestion and post nasal drip; Denies: throat pain or odynophagia Card: Denies: chest pain or palpitations Resp: Reports: productive cough; Denies: dyspnea or wheezing GI: Denies: abdominal pain, nausea, vomiting, diarrhea or constipation Musc: Denies: extremity pain or extremity swelling Skin/Breast: Denies: rash Neuro: Denies: headache(s) Psych: Reports: anxiety and depression PFSH ED PFSH: Medical History (Updated 04/29/21 @ 09:36 by Nesha Orr PA-C) Chronic pain Chronic pain disorder Gastroenteritis Genital herpes Glycosuria Hepatitis C History of endometrial hyperplasia Surgical History History of tonsillectomy and adenoidectomy Hx of hysterectomy Hx of tubal ligation Family History Other Cancer Heart disease Social History Smoking and tobacco status: never smoked Alcohol intake: former Current occupation: unemployed History of recent travel: No Physical Exam Const: COMMON NORMALS: no acute distress, patient oriented x3 and alert GENERAL APPEARANCE: cooperative and well kempt HENMT: COMMON NORMALS: normocephalic, external ears normal, TM's normal bilaterally, Normal external nose present and oropharynx normal HEAD & SCALP: normocephalic FACE & SINUS: sinus tenderness (maxillary and frontal- mild tenderness) NOSE: Normal external nose present and Nasal discharge present EXTERNAL EAR: Yes external ears normal TYMPANIC MEMBRANE: TM's normal bilaterally MOUTH: moist mucous membranes abnormal THROAT: posterior oropharynx normal and tonsils normal Neck/C-Spine: COMMON NORMALS: full ROM, no lymphadenopathy and no JVD Lymph: LYMPHATIC: no lymphadenopathy noted Resp: COMMON NORMALS: normal respiratory effort, No retractions and clear to auscultation bilaterally EFFORT & INSPECTION: Yes able to speak in complete sentences AUSCULTATION: clear to auscultation bilaterally, no rales, no rhonchi and no wheezes Cardio: COMMON NORMALS: no JVD, regular rate, regular rhythm and No murmurs present (Cardio) RATE: regular rate RHYTHM: regular rhythm GI: COMMON NORMALS: Normal to inspection, nondistended, normoactive bowel sounds present, Soft to palpation and non-tender PALPATION: Yes Soft to palpation Back/Pelvis: COMMON NORMALS: no thoracic nor lumbar tenderness Extremity: COMMON NORMALS: normal to inspection, full ROM and capillary refill normal Neuro: COMMON NORMALS: patient oriented x3 SENSORIUM/ORIENTATION: Yes alert Psych: COMMON NORMALS: speech normal, denies homicidal ideation and denies suicidal ideation APPEARANCE: Yes well kempt ATTITUDE: Yes Withdrawn affect present SPEECH: Yes normal speech MOOD & AFFECT: Yes depressed mood, No tearful and Yes Flat affect present THOUGHT PROCESS: Other thought process findings present (patient has mild flight of ideas and quickly changes topics about her past) Skin: COMMON NORMALS: no rashes or lesions noted GENERAL SKIN EXAM: no rashes or lesions noted Course ED course: Patient is stable in ER. Exam is mostly unremarkable. We will swab for Covid upon discharge given the congestion. Recommend Mucinex 600 mg twice daily for congestion. We will try Vistaril for anxiety as Benadryl is likely not effective. Patient has an appointment with PCP on Sunday and should follow up with him to discuss further treatment. Patient denies SI\HI. Vital Signs: Vital signs: Vital Signs Temperature 98.1 F 04/29/21 09:03 Pulse Rate 59 L 04/29/21 09:03 Respiratory Rate 15 04/29/21 09:03 Blood Pressure 136/82 04/29/21 09:03 Pulse Oximetry 97 04/29/21 09:03 MDM - Anxiety MDM Narrative: Medical decision making narrative: Patient is stable in the ER. Probable URI versus Covid. We will swab for Covid upon discharge. Recommended Mucinex 600 to 1200 mg twice daily for congestion. Increase fluid intake. For the anxiety we will try Vistaril 25 mg 3 times daily as needed for anxiety. Patient has an appointment with her PCP on Sunday to discuss worsening anxiety. Advised her not to take the Benadryl if she is taking the Vistaril. Patient consents for safety and denies SI/HI. Return to the ER with any new or worsening symptoms. Critical Care Time Critical Care Time: Critical Care Time: No Discharge Plan Discharge Patient Disposition: Home Clinical Impression: Acute anxiety URI (upper respiratory infection) Qualifiers: URI type: unspecified viral URI Qualified Code(s): J06.9 - Acute upper respiratory infection, unspecified Condition: Stable Prescriptions: New Mucinex 1,200 mg tablet extended release 12hr 1,200 mg PO BID PRN (Reason: congestion) Qty: 20 RF: 0 Vistaril 25 mg capsule 25 mg PO TID PRN (Reason: anxiety) Qty: 20 RF: 0 No Action tretinoin [Retin-A] 0.1 % cream 1 applic topical DAILY Qty: 45 RF: 3 Medical Marijuana See Rx Instructions .ROUTE .COMPLEX RF: 0 diclofenac sodium 75 mg tablet,delayed release (DR/EC) 75 mg PO Q12H PRN (Reason: pain) Qty: 20 RF: 0 Discharge Orders: Discharge ED (Routine); Ordered 04/29/21 Ordered By: Nesha Orr Referrals: Haja Cortes MD [Primary Care Provider] - Discharge Diet: Usual diet Discharge Activity: Resume usual activity Patient Instructions: Opioid Safety Activity Restrictions/Additional Instructions: Take Mucinex as prescribed. Take Vistaril as prescribed. Do not take Benadryl when taking Vistaril. Increase fluid intake. Follow-up with Dr. Cortes on Sunday at scheduled appointment. Return to the ER with any new or worsening symptoms. Coding Level of Care Code ED Vascular Surgery Physician for Tu Amezcua
[2021-04-29 10:00] VITALS: BP 143/98; PULSE 79; RESP 16; O2SAT 97
[2021-04-30 20:12] LABS: Quest SARS-CoV-2 RNA NOT DETECTED (NOT DETECTED)
== END 2021-04-29 09:51 | disposition home or self-care (01) ==
PROVIDERS: Emergency Provider Physician Assistant; PCP Family Medicine
DX: F41.9 Anxiety disorder, unspecified (principal); J06.9 Acute upper respiratory infection, unspecified; Z86.19 Personal history of other infectious and parasitic diseases; Z20.822 Contact with and (suspected) exposure to COVID-19
CPT/HCPCS: 87635; 99281

== ENCOUNTER 2021-05-15 21:30 | Emergency (ER) | payer MEDICAID, SELFPAY ==
[2021-05-15 21:54] VITALS: BP 121/80; PULSE 80; RESP 18; TEMP 36.6; O2SAT 100; BMI 25.7
--- NOTE | 2021-05-15 23:49 | ED_ITS ---
HPI - General Adult General: Chief complaint: General Medical Stated complaint: fingrs are tingling, cut finger Time Seen by Provider: 05/15/21 23:47 History of Present Illness: HPI narrative: Patient came in tonight with complaints of numbness and tingling in her fingers. Patient also reported some shaking. Patient states that she came to the ER to be evaluated for that but started having some chest discomfort and shortness of breath while in the ER. Patient appears well. Patient appears no acute distress. Patient does report use of medical marijuana. Patient also has a history of depression and anxiety. Associated symptoms: Reports chest pain and dyspnea Review of Systems General: Reports: 10 or more systems reviewed and unremarkable except in HPI and below Card: Reports: chest pain Resp: Reports: dyspnea Neuro: Reports: numbness in extremities Psych: Reports: anxiety and depression PFS ED PFSH: Medical History (Updated 05/16/21 @ 02:08 by JOSE Cortés) Chronic pain Chronic pain disorder Gastroenteritis Genital herpes Glycosuria Hepatitis C History of endometrial hyperplasia Psychiatric care Surgical History History of tonsillectomy and adenoidectomy Hx of hysterectomy Hx of tubal ligation Family History Other Cancer Heart disease Social History Smoking and tobacco status: former smoker Alcohol intake: former Current occupation: unemployed History of recent travel: No Physical Exam Const: COMMON NORMALS: no acute distress and patient oriented x3 GENERAL APPEARANCE: cooperative HENMT: COMMON NORMALS: normocephalic and Normal external nose present HEAD & SCALP: normal to inspection and normocephalic NOSE: Normal external nose present MOUTH: Normal oral and palatal mucosa present Eye: GENERAL EYE: appearance normal, both eyes and all related structures Neck/C-Spine: COMMON NORMALS: full ROM Lymph: LYMPHATIC: no lymphadenopathy noted Chest: COMMONS NORMALS: normal inspection of the chest Resp: COMMON NORMALS: normal respiratory effort and clear to auscultation bilaterally EFFORT & INSPECTION: Yes able to speak in complete sentences AUSCULTATION: clear to auscultation bilaterally Cardio: COMMON NORMALS: regular rate and regular rhythm RATE: regular rate RHYTHM: regular rhythm GI: COMMON NORMALS: non-tender : COMMON NORMALS: Yes no CVA tenderness BLADDER/KIDNEY EXAM: Yes no CVA tenderness Back/Pelvis: COMMON NORMALS: no CVA tenderness and thoracic and lumbar spine normal to inspection Extremity: COMMON NORMALS: normal to inspection Neuro: COMMON NORMALS: patient oriented x3 and moves all extremities Psych: COMMON NORMALS: mental status grossly normal and cooperative Skin: COMMON NORMALS: no rashes or lesions noted GENERAL SKIN EXAM: no rashes or lesions noted Course Vital Signs: Vital signs: Vital Signs Temperature 98 F 05/15/21 21:54 Pulse Rate 80 05/15/21 21:54 Respiratory Rate 18 05/15/21 21:54 Blood Pressure 121/80 05/15/21 21:54 Pulse Oximetry 100 05/15/21 21:54 MDM - General Adult MDM Narrative: Medical decision making narrative: Patient came in today with complaints of palpitations and chest discomfort. Patient reports she has had on and off frequently but has been worse today. Patient appears well. Patient appears no acute distress. Lungs are clear to auscultation. Heart rates regular. Skin is warm and dry. Vital signs are normal. Differential diagnosis includes but not limited to anxiety, adverse effect to marijuana, malingering, arrhythmia. EKG showed a sinus arrhythmia. Laboratory values were perfectly normal. Troponin was normal. Chest x-ray was normal. I reviewed these labs and x-rays with patient which reassured her but I did recommend patient follow- up with primary care to discuss possibility of having a Holter monitor or be evaluated further by cardiology. Patient reported understanding and agreed to plan. Lab Data: Labs: Lab Results 05/16/21 05/16/21 05/16/21 00:55 00:55 00:55 WBC 9.1 10^3/uL 10^3/ uL (4.0-10.0) RBC 4.26 10^6/uL 10^6 /uL (4.1-5.3) Hgb 13.3 g/dL g/dL (11.5-15.3) Hct 40.8 % % (37.0-47.0) MCV 95.8 fl fl (81-99) MCH 31.2 pg pg (28.0-34.0) MCHC 32.6 g/dL g/dL (30.0-36.0) RDW 12.3 % % (12.1-15.1) Plt Count 274 10^3/cmm 10^3 /cmm (130-400) MPV 10.1 fL fL (7.4-10.4) Neut % (Auto) 67.0 % % Lymph % (Auto) 24.9 % % Mcdonough % (Auto) 6.0 % % Eos % (Auto) 1.4 % % Baso % (Auto) 0.4 % % Neut # (Auto) 6.08 10^3/uL 10^3 /uL (1.8-7.7) Lymph # (Auto) 2.3 10^3/uL 10^3/ uL (0.8-4.8) Mcdonough # (Auto) 0.6 10^3/uL 10^3/ uL (0.2-0.9) Eos # (Auto) 0.1 10^3/uL 10^3/ uL (0.0-0.8) Baso # (Auto) 0.0 10^3/uL 10^3/ uL (0.0-0.1) Nucleated RBC % (a uto) 0 % % Nucleated RBCs # 0.0 /100WBC /100W BC Sodium 139 mmol/L mmol/L (136-145) Potassium 4.0 mmol/L mmol/L (3.5-5.1) Chloride 103 mmol/L mmol/L (98-107) Carbon Dioxide 26 mmol/L mmol/L (22-29) Anion Gap 14.0 (5-19) BUN 15 mg/dL mg/dL (6-20) Creatinine 0.7 mg/dL mg/dL (0.5-0.9) GFR Calculation 90.5 mL/min mL/mi n (90-130) Glucose 91 mg/dL mg/dL (65-115) Calculated Osmolal ity 288 mOsm/kg mOsm/ kg (285-295) Calcium 9.3 mg/dL mg/dL (8.5-10.5) Total Bilirubin 0.2 mg/dL mg/dL (0.15-1.2) AST 16 U/L U/L (0-32) ALT 13 U/L U/L (0-33) Alkaline Phosphata se 52 IU/L IU/L (35-105) Troponin T Gen 5 n g/L 6 ng/L ng/L (0-10) C-Reactive Protein 1.2 mg/L mg/L (0.0-4.9) Total Protein 6.9 g/dL g/dL (6.6-8.7) Albumin 4.5 g/dL g/dL (3.5-5.2) Globulin 2.4 g/dL g/dL (1.3-4.6) EKG Data^: EKG 1: Attestation: I personally reviewed and interpreted this EKG as follows: (2350, EKG shows a sinus rhythm with some sinus arrhythmia with a mildly irregular rate at [address] elevation or ectopy is noted. No prior exam exam is available for me for comparison.) Computer generated interpretation: Chest X-Ray 05/16/21 00:10 IMPRESSION: No acute disease. Discharge Plan Discharge Patient Disposition: Home Clinical Impression: Palpitation Condition: Stable Prescriptions: No Action bimatoprost [Latisse] 0.03 % drops with applicator 1 applic topical DAILY Qty: 3 RF: 2 clindamycin phosphate 1 % lotion 1 applic topical QAM Qty: 60 RF: 3 tretinoin [Retin-A] 0.1 % cream 1 applic topical DAILY Qty: 45 RF: 3 Medical Marijuana See Rx Instructions .ROUTE .COMPLEX RF: 0 Discharge Orders: Discharge ED (Routine); Ordered 05/16/21 Ordered By: Carrington Gomez Referrals: Haja Cortes MD [Primary Care Provider] - Discharge Diet: Usual diet Discharge Activity: Increase activity as tolerated Patient Instructions: Palpitations (ED), Opioid Safety Activity Restrictions/Additional Instructions: Home and rest. Drink plenty of water. Continue with routine care as directed. Follow-up with primary care regarding further treatment and evaluation. He may recommend you be evaluated by a offset press operator apprentice. He may also recommend that you wear a Holter monitor to continually monitor your heart for abnormal rhythm. Follow-up with primary care for further instruction. Return to the emergency department for worsening symptoms or new concerns. Coding Level of Care Code ED Watch Band Assembler for Chg Fwd Exam Comprehensive
--- NOTE | 2021-05-15 23:50 | PC.NURSE ---
patient at desk stating she is having chest pain again, ekg preformed, patient states she is recording me and has called greenhouse worker because I took people back before her, that I cannot take people out of order. Charge nurse updated.
--- NOTE | 2021-05-16 00:10 | ECG_ITS ---
[facility] Test Date: 2021-05-15 Pat Name: Alondra Lange Department: Room: Gender: Female Reservation Clerk: : 1975 Requested By: Carrington Delgadillo Order Number: [id number] Suzanna MD: Mateus Hanna M.D. Measurements Intervals [place] Rate: 62 P: 48 WV: 168 QRS: 42 QRSD: 92 T: 45 QT: 418 QTc: 426 Interpretive Statements SINUS RHYTHM WITH MARKED SINUS ARRHYTHMIA Compared to ECG 05/23/2020 16:25:03 Sinus tachycardia no longer present T-wave abnormality no longer present Electronically Signed On 05-16-2021 22:23:12 CDT by Mateus Hanna M.D. [id number]
--- NOTE | 2021-05-16 00:10 | XRR_ITS ---
PROCEDURE INFORMATION: Exam: XR Chest Exam date and time: 05/16/2021 12:10 AM Age: 45 years old Clinical indication: Chest wall pain; Additional info: Chest pain TECHNIQUE: Imaging protocol: XR of the chest. Views: 1 view. COMPARISON: CR XR chest 1V portable [id number] 05/23/2020 5:26 PM FINDINGS: Lungs: Unremarkable. No consolidation. Pleural spaces: Unremarkable. No pleural effusion. No pneumothorax. Heart/Mediastinum: Unremarkable. No cardiomegaly. Bones/joints: Unremarkable. XR/XR chest 1V portable [id number] IMPRESSION: No acute disease.
[2021-05-16 01:12] LABS: Basophils % 0.4 %; Eosinophils # 0.1 10^3/uL (0.0-0.8); Eosinophils % 1.4 %; Hematocrit 40.8 % (37.0-47.0); Hemoglobin 13.3 g/dL (11.5-15.3); Lymphocytes # 2.3 10^3/uL (0.8-4.8); Lymphocytes % 24.9 %; Mean Corpuscular HGB Conc 32.6 g/dL (30.0-36.0); Mean Corpuscular Hemoglobin 31.2 pg (28.0-34.0); Mean Corpuscular Volume 95.8 fl (81-99); Mean Platelet Volume 10.1 fL (7.4-10.4); Monocytes # 0.6 10^3/uL (0.2-0.9); Neutrophils # 6.08 10^3/uL (1.8-7.7); Nucleated Red Blood Cells % 0 %; Platelet Count 274 10^3/cmm (130-400); Red Blood Count 4.26 10^6/uL (4.1-5.3); Red Cell Distribution Width 12.3 % (12.1-15.1); White Blood Count 9.1 10^3/uL (4.0-10.0)
[2021-05-16 01:52] LABS: Alanine Aminotransferase 13 U/L (0-33); Albumin Level 4.5 g/dL (3.5-5.2); Alkaline Phosphatase 52 IU/L (35-105); Aspartate Amino Transferase 16 U/L (0-32); Blood Urea Nitrogen 15 mg/dL (6-20); C Reactive Protein 1.2 mg/L (0.0-4.9); Calcium 9.3 mg/dL (8.5-10.5); Carbon Dioxide 26 mmol/L (22-29); Chloride 103 mmol/L (98-107); Globulin 2.4 g/dL (1.3-4.6); Glomerular Filtration Rate 90.5 mL/min (90-130); Glucose 91 mg/dL (65-115); Osmolality Calculated 288 mOsm/kg (285-295); Sodium 139 mmol/L (136-145); Total Bilirubin 0.2 mg/dL (0.15-1.2); Total Protein 6.9 g/dL (6.6-8.7); Troponin T (5th) Once 6 ng/L (0-10)
[2021-05-16 02:18] VITALS: BP 119/85; PULSE 76; RESP 18; O2SAT 97
== END 2021-05-16 02:20 | disposition home or self-care (01) ==
PROVIDERS: Emergency Provider Nurse Practitioner Family; PCP Family Medicine
DX: R00.2 Palpitations (principal); Z86.19 Personal history of other infectious and parasitic diseases; Z87.891 Personal history of nicotine dependence
CPT/HCPCS: 71045; 80053; 84484; 85025; 86140; 93005; 99283

== ENCOUNTER → 2021-06-08 10:51 | Outpatient (BNVA) | payer MEDICAID, SELFPAY | PROVIDERS: PCP Family Medicine; Visit Provider Counselor Professional | DX: F43.12 Post-traumatic stress disorder, chronic (principal); F60.3 Borderline personality disorder | CPT/HCPCS: 90834 ==

== ENCOUNTER → 2021-06-15 14:39 | Outpatient (BNVA) | payer MEDICAID, SELFPAY | PROVIDERS: PCP Family Medicine; Visit Provider Counselor Professional | DX: F99 Mental disorder, not otherwise specified (principal); F43.12 Post-traumatic stress disorder, chronic; F60.3 Borderline personality disorder | CPT/HCPCS: 90834 ==

== ENCOUNTER → 2021-06-29 09:40 | Outpatient (BNVA) | payer MEDICAID, SELFPAY | PROVIDERS: PCP Family Medicine; Visit Provider Counselor Professional | DX: F43.12 Post-traumatic stress disorder, chronic (principal); F60.3 Borderline personality disorder | CPT/HCPCS: 90834 ==

== ENCOUNTER 2021-07-02 05:37 | Emergency (ER) | payer MEDICAID, SELFPAY ==
[2021-07-02 05:42] VITALS: BP 113/79; PULSE 76; RESP 16; O2SAT 98; BMI 25.4
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
== END 2021-07-02 06:42 | disposition home or self-care (01) ==
PROVIDERS: Emergency Provider Emergency Medicine; PCP Family Medicine
DX: S39.94XA Unspecified injury of external genitals, initial encounter (principal); W50.3XXA Accidental bite by another person, initial encounter; Z86.19 Personal history of other infectious and parasitic diseases; Z87.891 Personal history of nicotine dependence
CPT/HCPCS: 99281

== ENCOUNTER → 2021-07-06 10:45 | Outpatient (BNVA) | payer MEDICAID, SELFPAY | PROVIDERS: PCP Family Medicine; Visit Provider Nurse Practitioner Family | DX: Z20.822 Contact with and (suspected) exposure to COVID-19 (principal) | CPT/HCPCS: 87635 ==

== ENCOUNTER → 2021-08-26 11:06 | Outpatient (BNVA) | payer MEDICAID, SELFPAY | PROVIDERS: PCP Family Medicine; Visit Provider Nurse Practitioner Family | DX: Z20.822 Contact with and (suspected) exposure to COVID-19 (principal); Z20.828 Contact with and (suspected) exposure to other viral communicable diseases | CPT/HCPCS: 87635 ==

== ENCOUNTER 2021-09-01 19:03 | Emergency (ER) | payer MEDICAID, SELFPAY ==
[2021-09-01 19:33] VITALS: BP 143/89; PULSE 106; RESP 18; TEMP 36.2; O2SAT 99; BMI 26.2
--- NOTE | 2021-09-01 19:57 | PC.NURSE ---
sent for urine sample,
[2021-09-01 20:29] LABS: Amphetamines Screen Urine Negative (Negative); Barbiturates Screen Urine Negative (Negative); Benzodiazepines Screen Urine Negative (Negative); Cocaine Screen Urine Negative (Negative); Opiate Screen Urine Negative (Negative); PCP Screen Urine Negative (Negative); THC Screen Urine Positive (Negative)
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
--- NOTE | 2021-09-01 22:08 | ECG_ITS ---
[facility] Test Date: 2021-09-01 Pat Name: Alondra Lange Department: Room: Gender: Female Claims Specialist: : 1975 Requested By: Dian Baltazar Order Number: [id number] Reading MD: HARRIS DOBBINS Measurements Intervals [place] Rate: 69 P: 53 DE: 176 QRS: 66 QRSD: 87 T: 60 QT: 395 QTc: 424 Interpretive Statements SINUS RHYTHM WITH SINUS ARRHYTHMIA Compared to ECG 05/15/2021 23:46:13 No significant changes Electronically Signed On 09-02-2021 18:16:13 BUSINESS INTERN by HARRIS DOBBINS [id number]
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
[2021-09-01 22:35] LABS: Basophils % 0.2 %; Eosinophils % 0.3 %; Hematocrit 37.2 % (37.0-47.0); Hemoglobin 12.4 g/dL (11.5-15.3); Lymphocytes # 1.4 10^3/uL (0.8-4.8); Lymphocytes % 15.6 %; Mean Corpuscular HGB Conc 33.3 g/dL (30.0-36.0); Mean Corpuscular Hemoglobin 31.3 pg (28.0-34.0); Mean Corpuscular Volume 93.9 fl (81-99); Monocytes # 0.5 10^3/uL (0.2-0.9); Monocytes % 5.5 %; Neutrophils # 6.98 10^3/uL (1.8-7.7); Neutrophils % 78.2 %; Nucleated Red Blood Cells % 0 %; Platelet Count 297 10^3/cmm (130-400); Red Blood Count 3.96 10^6/uL (4.1-5.3); Red Cell Distribution Width 12.1 % (12.1-15.1); White Blood Count 8.9 10^3/uL (4.0-10.0)
--- NOTE | 2021-09-01 22:35 | XRR_ITS ---
PROCEDURE INFORMATION: Exam: XR Chest Exam date and time: 09/01/2021 10:35 PM Age: 45 years old Clinical indication: Pain; Patient HX: C/O palpitations with chest discomfort; Additional info: Chest pain TECHNIQUE: Imaging protocol: XR of the chest. Views: 1 view. COMPARISON: CR (CHEST, ) 05/16/2021 12:20 AM FINDINGS: Lungs: Unremarkable. No consolidation. Pleural spaces: Unremarkable. No pleural effusion. No pneumothorax. Heart/Mediastinum: Unremarkable. No cardiomegaly. Bones/joints: Unremarkable. XR/XR chest 1V portable [id number] IMPRESSION: No acute findings.
[2021-09-01 22:41] VITALS: BP 132/89; PULSE 79; RESP 18; O2SAT 100
[2021-09-01 22:52] LABS: HCG, Serum Qual Negative (Negative)
[2021-09-01 22:59] LABS: Troponin(5th) Baseline 6 ng/L (0-10)
[2021-09-01 23:01] LABS: Acetaminophen < 5.0 ug/mL (10-30); Anion Gap 17.5 (5-19); Blood Urea Nitrogen 10 mg/dL (6-20); Calcium 8.8 mg/dL (8.5-10.5); Carbon Dioxide 21 mmol/L (22-29); Chloride 108 mmol/L (98-107); Glomerular Filtration Rate 90.5 mL/min (90-130); Glucose 98 mg/dL (65-115); Osmolality Calculated 295 mOsm/kg (285-295); Potassium 3.5 mmol/L (3.5-5.1); Salicylate < 0.3 mg/dL (3-10); Sodium 143 mmol/L (136-145)
[2021-09-01] MEDS: acetaminophen 500 mg Tablet PO (23:08)
[2021-09-01 23:21] VITALS: BP 117/84; PULSE 74; RESP 18; O2SAT 99
== END 2021-09-02 00:49 | disposition home or self-care (01) ==
PROVIDERS: Emergency Medicine; Emergency Provider Emergency Medicine; PCP Family Medicine
DX: R00.2 Palpitations (principal); R07.9 Chest pain, unspecified; F12.19 Cannabis abuse with unspecified cannabis-induced disorder; Z86.19 Personal history of other infectious and parasitic diseases; Z87.891 Personal history of nicotine dependence
CPT/HCPCS: 71045; 80048; 80306; 80307; 84484; 84703; 85025; 93005; 99284

== ENCOUNTER 2021-09-02 11:35 | Emergency (ER) | payer MEDICAID, SELFPAY ==
[2021-09-02 11:56] VITALS: BP 144/92; PULSE 94; RESP 18; TEMP 36.8; O2SAT 96
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
--- NOTE | 2021-09-05 07:17 | DCPLANNER ---
data operations manager had message to schedule a follow up appointment for patient with heart care for a 48 hour halter monitor. data operations manager faxed signed order to heart care, who will call patient with appointment information.
--- NOTE | 2021-09-06 06:59 | DCPLANNER ---
Addendum entered by Karen Ortega 09/23/21 10:01: Patient had a follow up appointment scheduled for 09.08.21 for a halter monitor - patient did attend. Original Note: Patient has an appointment scheduled for August at 1:00 at [facility] for a 48 hour halter monitor. Clinic will call patient with appointment information.
== END 2021-09-02 14:57 | disposition home or self-care (01) ==
PROVIDERS: Emergency Provider Physician Assistant; PCP Family Medicine
DX: R00.2 Palpitations (principal); Z86.19 Personal history of other infectious and parasitic diseases; Z87.891 Personal history of nicotine dependence
CPT/HCPCS: 99281

== ENCOUNTER → 2021-09-05 11:38 | Outpatient (BNVA) | payer MEDICAID, SELFPAY | PROVIDERS: PCP Family Medicine; Visit Provider Nurse Practitioner Family | DX: Z20.822 Contact with and (suspected) exposure to COVID-19 (principal) | CPT/HCPCS: 87635 ==

== ENCOUNTER 2021-09-14 22:04 | Emergency (ER) | payer MEDICAID, SELFPAY ==
[2021-09-14 22:16] VITALS: BP 152/84; PULSE 93; RESP 16; TEMP 36.6; O2SAT 98; BMI 24.5
--- NOTE | 2021-09-14 22:51 | W.ED.EXTPRO ---
HPI - Extremity Problem General: Chief complaint: Extremity Injury, Lower Stated complaint: Pain under neck, to back down arm Time Seen by Provider: 09/14/21 22:37 History of Present Illness: 45-year-old female comes in today with complaints of pain in her left arm. Patient reports that 2 weeks ago she had similar episode with pain in both arms. Patient was driving her car and felt overwhelmed with the pain and discomfort and difficulty moving both arms. Patient called for EMS and was evaluated in the ER for ACS. At that time troponin was negative and EKG showed no significant abnormality. Patient was concerned tonight that she may be having what she says another heart attack. Patient uses medical marijuana routinely but denies any other medications. Onset (ago): day(s) Pain Consistency: intermittent Location: left and upper extremity Severity scale (1-10): 7 Quality: burning Radiation: distal Relieving factors: nothing Exacerbating factors: range of motion Associated symptoms: Reports chest pain Review of Systems Card: Reports: chest pain Musc: Reports: extremity pain [facility] ED PFSH: Medical History (Updated 09/14/21 @ 23:58 by JOSE Cortés) Anxiety about health Chronic pain Chronic pain disorder Gastroenteritis Genital herpes Glycosuria Hepatitis C History of endometrial hyperplasia Insomnia Psychiatric care Surgical History History of tonsillectomy and adenoidectomy Hx of hysterectomy Hx of tubal ligation Family History Other Cancer Heart disease Social History Smoking and tobacco status: former smoker Alcohol intake: former Adopted: No Caregiver/support person: No Lives independently: Yes Household members: significant other Housing: Other Marital status: Legally Number of children: 3 Number of grandchildren: 0 Highest education level completed: Bachelor's Degree service: No Current occupational status: employed Current occupation: [employer] in [place], [place] History of recent travel: No Physical Exam Const: COMMON NORMALS: alert HENMT: COMMON NORMALS: normocephalic HEAD & SCALP: normocephalic Neck/C-Spine: CERVICAL SPINE: Yes cervical ROM normal and Yes Paracervical muscle tenderness Resp: COMMON NORMALS: normal respiratory effort and clear to auscultation bilaterally AUSCULTATION: clear to auscultation bilaterally Cardio: COMMON NORMALS: regular rate and regular rhythm RATE: regular rate RHYTHM: regular rhythm GI: COMMON NORMALS: Soft to palpation and non-tender PALPATION: Yes Soft to palpation Extremity: COMMON NORMALS: normal to inspection Neuro: SENSORIUM/ORIENTATION: Yes alert Psych: ACTIVITY/MOTOR BEHAVIOR: Yes psychomotor slowing MOOD & AFFECT: Yes Flat affect present Skin: COMMON NORMALS: no rashes or lesions noted GENERAL SKIN EXAM: no rashes or lesions noted Course Vital Signs: Vital signs: Vital Signs Temperature 98 F 09/14/21 22:16 Pulse Rate 93 09/14/21 22:16 Respiratory Rate 16 09/14/21 22:16 Blood Pressure 152/84 09/14/21 22:16 Pulse Oximetry 98 09/14/21 22:16 MDM - Extremity (Nontraumatic) Medical Decision Making Patient comes in tonight with complaints of numbness and burning in her left arm. Patient also reports chest discomfort. On exam patient has exacerbation of pain with movement of the shoulder. Tenderness in the muscle of the left trapezius. Heart rates regular. Skin is warm and dry. Vital signs are normal except for some mild elevation in blood pressure. Differential diagnosis includes ACS, anxiety, cervical radiculopathy. EKG was sinus rhythm with no significant change from prior exams. Patient had a full cardiac work-up within the last week that showed no abnormalities and a negative troponin. I believe the patient cervical radiculopathy causing some numbness and discomfort in her upper extremities. This makes patient anxious and then she has symptoms of a panic episode. EKG shows no changes and no signs of ACS. I reassured patient there was no signs of any heart problems at this time. I recommended patient follow-up with her primary care regarding her concerns for the numbness in both of her arms. Patient reported understanding and agreed to plan. Discharge Plan Discharge Patient Disposition: Home Clinical Impression: Cervical radiculopathy Condition: Stable Prescriptions: No Action paroxetine HCl 20 mg tablet 20 mg PO .qhs Qty: 30 1RF Medical Marijuana See Rx Instructions .ROUTE .COMPLEX 0RF Rx Instructions: PRN Discharge Orders: Discharge ED (Routine); Ordered 09/14/21 Ordered By: Carrington Gomez Discharge Diet: Usual diet Discharge Activity: Increase activity as tolerated Activity Restrictions/Additional Instructions: Activity as tolerated. Drink plenty of water. Use acetaminophen for pain. Follow-up with primary care for further evaluation of extremity pain. You may need to have an MRI of the neck to evaluate for impingement of the spinal cord and nerves of the neck. Discussed with your primary care about your changes in stools and your concerns for abdominal pain. Return to the ER for high fever greater than 100.4 or new concerns. Coding Level of Care Code ED Substitute Nurse for Marling Fwd History Expanded Problem Focused Exam Expanded Problem Focused Medical Decision Making Low Complexity Time Spent (min) 30
--- NOTE | 2021-09-14 22:56 | ECG_ITS ---
[facility] Test Date: 2021-09-14 Pat Name: Alondra Lange Department: Room: Gender: Female Single End Sewer: : 1975 Requested By: Carrington Delgadillo Order Number: [id number] Suzanna MD: Trey Ashton M.D. Measurements Intervals [place] Rate: 75 P: 79 CT: 179 QRS: 55 QRSD: 92 T: 58 QT: 397 QTc: 443 Interpretive Statements SINUS RHYTHM WITH SINUS ARRHYTHMIA POSSIBLE LEFT ATRIAL ENLARGEMENT [-0.1mV P-WAVE IN V1/V2] Compared to ECG 09/01/2021 22:41:42 No significant changes Electronically Signed On 09-15-2021 0:15:18 AUDITING CODER by Trey Ashton M.D. [email or web address]
[2021-09-15 00:12] VITALS: BP 135/84; RESP 16
== END 2021-09-15 00:12 | disposition home or self-care (01) ==
PROVIDERS: Emergency Provider Nurse Practitioner Family
DX: M54.12 Radiculopathy, cervical region (principal); Z86.19 Personal history of other infectious and parasitic diseases; Z87.891 Personal history of nicotine dependence
CPT/HCPCS: 93005; 99282

== ENCOUNTER 2021-09-15 12:19 | Inpatient (IN) | payer MEDICAID, SELFPAY ==
[2021-09-15 13:26] VITALS: BP 130/92; PULSE 103; RESP 16; TEMP 36.7; O2SAT 98
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
[2021-09-15 14:43] VITALS: BP 126/79; PULSE 84; RESP 16; O2SAT 99
[2021-09-15 15:49] LABS: Amphetamines Screen Urine Negative (Negative); Barbiturates Screen Urine Negative (Negative); Benzodiazepines Screen Urine Negative (Negative); Cocaine Screen Urine Negative (Negative); Opiate Screen Urine Negative (Negative); PCP Screen Urine Negative (Negative); THC Screen Urine Positive (Negative)
[2021-09-15 17:26] LABS: Basophils % 0.3 %; Eosinophils # 0.1 10^3/uL (0.0-0.8); Eosinophils % 1.4 %; Hemoglobin 14.6 g/dL (11.5-15.3); Lymphocytes # 1.8 10^3/uL (0.8-4.8); Lymphocytes % 28.2 %; Mean Corpuscular Volume 94.3 fl (81-99); Mean Platelet Volume 10.3 fL (7.4-10.4); Monocytes # 0.4 10^3/uL (0.2-0.9); Monocytes % 6.9 %; Neutrophils # 3.95 10^3/uL (1.8-7.7); Nucleated Red Blood Cells % 0 %; Platelet Count 312 10^3/cmm (130-400); Red Blood Count 4.56 10^6/uL (4.1-5.3); White Blood Count 6.3 10^3/uL (4.0-10.0)
[2021-09-15 17:57] LABS: Acetaminophen < 5.0 ug/mL (10-30); Alanine Aminotransferase 17 U/L (0-33); Albumin Level 4.9 g/dL (3.5-5.2); Alcohol Level < 10 mg/dL (0-10); Alkaline Phosphatase 59 IU/L (35-105); Anion Gap 19.5 (5-19); Aspartate Amino Transferase 18 U/L (0-32); Blood Urea Nitrogen 10 mg/dL (6-20); Calcium 10.4 mg/dL (8.5-10.5); Carbon Dioxide 26 mmol/L (22-29); Chloride 100 mmol/L (98-107); Globulin 2.8 g/dL (1.3-4.6); Glomerular Filtration Rate 108.1 mL/min (90-130); Glucose 125 mg/dL (65-115); Osmolality Calculated 295 mOsm/kg (285-295); Potassium 3.5 mmol/L (3.5-5.1); Salicylate < 0.3 mg/dL (3-10); Sodium 142 mmol/L (136-145); Total Bilirubin 0.2 mg/dL (0.15-1.2); Total Protein 7.7 g/dL (6.6-8.7)
--- NOTE | 2021-09-15 18:17 | PC.NURSE ---
Called [facility] to admit and they are calling back with a bed
[2021-09-15] MEDS: metroNIDAZOLE 500 MG Tablet PO (20:00)
[2021-09-15 20:50] VITALS: BP 132/82; PULSE 80; RESP 16; O2SAT 99
[2021-09-15 21:17] VITALS: BP 132/82; PULSE 80; RESP 16; TEMP 36.7; O2SAT 99
[2021-09-16 05:28] VITALS: BP 112/75; PULSE 66; RESP 17; TEMP 36.7; O2SAT 99
--- NOTE | 2021-09-16 05:49 | PC.NURSE ---
Patient c/o of constant hunger and diabetic diet not filling him up, believes Depakote makes him hungry all the time. Educated patient on diabetic diet, hyperglycemia and gave patient handout. Patient requested to speak with physician regarding medications and constant hunger.
[2021-09-16] MEDS: metroNIDAZOLE 500 MG Tablet PO ×2 (09:13→18:25)
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
--- NOTE | 2021-09-16 13:08 | PC.NURSE ---
FLU VAC Patient initially wanted to receive flu vaccine. When medication taken to patient this morning patient refused stating that she did not want the vaccine. Noted to MAR.
[2021-09-16 13:46] VITALS: BP 111/73; PULSE 95; RESP 17; TEMP 36.9; O2SAT 97
[2021-09-16 21:06] VITALS: BP 123/87; PULSE 92; RESP 16; TEMP 36.7; O2SAT 97
[2021-09-17] MEDS: acetaminophen 325 mg Tablet 650 MG PO ×3 (03:14→21:25)
--- NOTE | 2021-09-17 04:31 | PC.NURSE ---
Patient reported pain at a 5 in her hip and shoulder. Tylenol was given. Patient is now asleep. Meds were effective.
[2021-09-17 06:00] VITALS: BP 122/78; PULSE 114; RESP 18; TEMP 36.3; O2SAT 97
[2021-09-17] MEDS: metroNIDAZOLE 500 MG Tablet PO ×2 (08:27→17:40)
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
[2021-09-17 14:00] VITALS: BP 122/78; PULSE 114; RESP 18; TEMP 36.3; O2SAT 97
[2021-09-17 21:23] VITALS: BP 128/89; PULSE 100; RESP 16; TEMP 36.6; O2SAT 99
[2021-09-17] MEDS: mirtazapine 15 mg Tablet PO (21:26)
[2021-09-18 05:58] VITALS: BP 115/79; PULSE 77; RESP 16; O2SAT 98
[2021-09-18 06:00] VITALS: BMI 24.5
[2021-09-18] MEDS: metroNIDAZOLE 500 MG Tablet PO ×2 (08:57→18:27)
[2021-09-18 14:00] VITALS: BP 115/79; PULSE 77; RESP 16; TEMP 36.6; O2SAT 98
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
[2021-09-18] MEDS: mirtazapine 15 mg Tablet PO (21:12)
[2021-09-18 21:25] VITALS: BP 127/87; PULSE 97; RESP 16; TEMP 36.9; O2SAT 100
[2021-09-19 05:57] VITALS: BP 108/72; PULSE 73; RESP 18; TEMP 36.4; O2SAT 98
[2021-09-19] MEDS: metroNIDAZOLE 500 MG Tablet PO (08:42)
--- NOTE | 2021-09-19 12:17 | NPU.GN ---
[facility] Group Topic:[place] Group Activity General Mood of Group: Alondra did attend and participate in group today. She was very social with this underwriter mortgage loan and others. She seems as though she may be exhibiting some paranoia tendencies as she was soc focused on people out to hurt her. Her hygiene is good. She does not seem mentally stable at this time.
[2021-09-19 14:00] VITALS: BP 123/89; PULSE 89; RESP 17; TEMP 36.6; O2SAT 98
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
[2021-09-19] MEDS: mirtazapine 15 mg Tablet PO (20:46)
[2021-09-19 21:58] VITALS: BP 145/90; PULSE 90; RESP 18; O2SAT 99
[2021-09-20 06:00] VITALS: BP 107/71; PULSE 70; RESP 17; TEMP 36.9; O2SAT 97
[2021-09-20] MEDS: metroNIDAZOLE 500 MG Tablet PO ×2 (09:03→18:42)
[2021-09-20] MEDS: acetaminophen 325 mg Tablet 650 MG PO ×2 (10:02→21:11)
--- NOTE | 2021-09-20 11:53 | PC.NURSE ---
pt has come up to the nurses station multiple times stating she need her phone to send a jpeg to her son. instructed pt multiple times that personal cell phones are not allowed on the floor. pt states her daughter informed her that son was transfered from [facility] to [facility] and it was an emergency. asked pt if daughter knew her sons status, pt could not answer. this nurse and live ammunition inspector attempted to calm pt, she became increasingly aggitated and was screaming in the dayroom, cursing at staff and was insistant that she needs to speak to dr ching because she was getting out of here and we were causing her more torment. pt continued to yell and voice multiple complaints, cussing at staff, pt finally turned and went to room.
--- NOTE | 2021-09-20 12:51 | NPU.GN ---
[facility] Topic:Triggers, Coping Mechanisms, Crisis Plan General Mood of Group: Alondra attended group today. She was social and did well in group. Her hygiene was good. She is emotional about her situation at home and broke down in group crying.
[2021-09-20 13:34] VITALS: BP 134/95; PULSE 103; RESP 17; TEMP 36.9; O2SAT 97
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
[2021-09-20] MEDS: mirtazapine 15 mg Tablet PO (21:08)
[2021-09-20 21:16] VITALS: BP 155/87; PULSE 102; RESP 16; TEMP 36.9; O2SAT 98
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
[2021-09-21] MEDS: acetaminophen 325 mg Tablet 650 MG PO (05:03)
[2021-09-21 06:00] VITALS: BP 118/89; PULSE 85; RESP 20; TEMP 36.8; O2SAT 97
[2021-09-21] MEDS: metroNIDAZOLE 500 MG Tablet PO ×2 (09:23→18:47)
[2021-09-21] MEDS: ziprasidone hcl 20 mg Capsule PO ×2 (11:55→16:53)
[2021-09-21 14:00] VITALS: BP 103/70; PULSE 76; RESP 18; TEMP 36.8; O2SAT 98
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
[2021-09-21] MEDS: mirtazapine 15 mg Tablet PO (21:16)
[2021-09-21 22:55] VITALS: BP 110/68; PULSE 76; RESP 14; TEMP 36.3; O2SAT 97
[2021-09-22 06:49] VITALS: BP 110/77; PULSE 69; RESP 18; TEMP 36.6; O2SAT 99
[2021-09-22] MEDS: ziprasidone hcl 20 mg Capsule PO (08:35)
[2021-09-22] MEDS: metroNIDAZOLE 500 MG Tablet PO ×2 (08:35→18:34)
[2021-09-22 14:00] VITALS: BP 104/71; PULSE 68; RESP 17; TEMP 36.6; O2SAT 98
[2021-09-22] MEDS: ARIPiprazole 10 mg Tablet PO (15:20)
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
[2021-09-22] MEDS: mirtazapine 15 mg Tablet PO (20:16)
[2021-09-22] MEDS: acetaminophen 325 mg Tablet 650 MG PO (20:16)
[2021-09-22 20:46] VITALS: BP 121/84; PULSE 105; RESP 17; TEMP 36.8; O2SAT 98
[2021-09-23 06:00] VITALS: BP 121/79; PULSE 82; RESP 18; TEMP 36.7; O2SAT 97
[2021-09-23] MEDS: acetaminophen 325 mg Tablet 650 MG PO ×2 (09:39→18:30)
[2021-09-23] MEDS: ARIPiprazole 10 mg Tablet PO (09:40)
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
[2021-09-23 14:00] VITALS: BP 131/87; PULSE 82; RESP 17; TEMP 36.8; O2SAT 98
[2021-09-23] MEDS: mirtazapine 15 mg Tablet PO (20:06)
[2021-09-23 21:32] VITALS: BP 131/86; PULSE 104; RESP 18; TEMP 37.2; O2SAT 96
[2021-09-24 06:00] VITALS: BP 101/71; PULSE 109; RESP 20; TEMP 36.3; O2SAT 98
[2021-09-24] MEDS: ARIPiprazole 10 mg Tablet PO (09:04)
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
[2021-09-24 14:00] VITALS: BP 136/94; PULSE 89; RESP 18; TEMP 36; O2SAT 99
[2021-09-24] MEDS: acetaminophen 325 mg Tablet 650 MG PO (16:20)
[2021-09-24] MEDS: hyDROXYzine 25 mg Capsule 50 MG PO (16:22)
[2021-09-24] MEDS: mirtazapine 15 mg Tablet PO (20:51)
[2021-09-24 21:18] VITALS: BP 131/76; PULSE 107; RESP 17; TEMP 36.6; O2SAT 97
[2021-09-25] MEDS: acetaminophen 325 mg Tablet 650 MG PO ×2 (04:48→20:23)
[2021-09-25 06:00] VITALS: BP 125/85; PULSE 78; RESP 18; TEMP 36.4; O2SAT 97; BMI 24.5
[2021-09-25] MEDS: ARIPiprazole 10 mg Tablet PO (09:23)
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
[2021-09-25] MEDS: hyDROXYzine 25 mg Capsule 50 MG PO ×2 (12:31→20:22)
[2021-09-25 14:00] VITALS: BP 132/99; PULSE 120; RESP 17; TEMP 36.7; O2SAT 97
[2021-09-25 17:03] VITALS: BP 137/88; PULSE 114; RESP 17; TEMP 37.1; O2SAT 99
[2021-09-25] MEDS: mirtazapine 15 mg Tablet PO (20:22)
[2021-09-25 20:30] VITALS: BP 147/81; PULSE 105; RESP 17; TEMP 36.8; O2SAT 98
[2021-09-26 06:00] VITALS: BP 120/77; PULSE 99; RESP 18; TEMP 36.3; O2SAT 97
--- NOTE | 2021-09-26 12:54 | NPU.GN ---
[facility] Group Topic: Whine Barrel Activity General Mood of Group: Alondra did not attend group today. This client did stop this jingle writer in the plummer and was asking this jingle writer to get her out of the NPU. This jingle writer discussed with the client that the doctor is the one that makes the determination when she leaves. The client reported that she does have a home and dog to go home to. This jingle writer told client that she needs to speak with drug abuse social worker and the doctor. She then asked this jingle writer to be with her when she spoke with the manager aerospace of the unit. Client met with the manager aerospace of the unit and the manager aerospace addressed her concerns and explained to the client that he would try to find out what is going on and let the doctor know that the client has also refused medications and that she is having heart and blood pressure issues. Client reported it was because of the Ambilify and that the staff was also mocking her. The client thanked this jingle writer and the director community organization for trying to help her and for listening.
[2021-09-26 14:00] VITALS: BP 151/102; PULSE 107; RESP 20; TEMP 36.5; O2SAT 98
--- NOTE | 2021-09-26 14:30 | ECG_ITS ---
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 Measurements Intervals [place] Rate: 97 P: 75 DC: 175 QRS: 46 QRSD: 84 T: 45 QT: 355 QTc: 453 Interpretive Statements SINUS RHYTHM POSSIBLE LEFT ATRIAL ENLARGEMENT [-0.1mV P-WAVE IN V1/V2] Compared to ECG 09/14/2021 23:37:59 Sinus arrhythmia no longer present Electronically Signed On 09-27-2021 5:22:37 HORSE STUD MANAGER by Nina Kitchen M.D. [id number]
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
[2021-09-26 19:00] VITALS: PULSE 97
[2021-09-26 21:24] VITALS: BP 128/87; PULSE 113; RESP 20; TEMP 36.7; O2SAT 96
[2021-09-26] MEDS: hyDROXYzine 25 mg Capsule 50 MG PO (21:38)
[2021-09-27] MEDS: acetaminophen 325 mg Tablet 650 MG PO ×3 (00:47→16:16)
[2021-09-27 06:00] VITALS: BP 135/91; PULSE 111; RESP 18; TEMP 36.4; O2SAT 99
--- NOTE | 2021-09-27 12:45 | NPU.GN ---
[facility] Topic: Self Care General Mood of Group: Alondra did not attend group.. She was complaining about going to the other side of the unit for group. That it is causing her PTSD but did not go into details.
[2021-09-27 14:00] VITALS: BP 132/87; PULSE 101; RESP 17; TEMP 37.7; O2SAT 97
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
--- NOTE | 2021-09-27 18:19 | PC.NURSE ---
PRNs- Patient has c/o pain in hip. At 1615 patient agreed to take PRN Tylenol for pain. Tylenol has been effective. No further c/o voiced.
[2021-09-27 20:18] VITALS: BP 149/99; PULSE 111; RESP 18; TEMP 36.8; O2SAT 98
[2021-09-27] MEDS: hyDROXYzine 25 mg Capsule 50 MG PO (21:08)
[2021-09-27 22:00] VITALS: BP 138/92; PULSE 89; O2SAT 89
--- NOTE | 2021-09-27 23:29 | PC.NURSE ---
Patient voiced c/o anxiety 02/26 and requested Hydroxyzine, given as ordered with no noted effectiveness. Patient still anxious, rambling at times, with disorganized thoughts, jumps from one subject to next. Patient was upset followinf a phonecall with ex-, was tearful, and stated she believes he has lung cancer because he has been sick and coughing. Attmpted to redirect patient and educate patient on relaxation techniques, and reassured patient. Patient then became paranoid, stating Thanks for trying to brainwash me like everyone else here does. Patient refused scheduled Mirtazapine. At approx 2345 patient requested PRN trazodone 50mg. Given as ordered.
[2021-09-27] MEDS: trazodone 50 mg Tablet PO (23:32)
[2021-09-28 05:39] VITALS: BP 126/84; PULSE 108; RESP 17; TEMP 36.2; O2SAT 99
[2021-09-28] MEDS: acetaminophen 325 mg Tablet 650 MG PO ×2 (08:31→16:43)
--- NOTE | 2021-09-28 08:33 | PC.NURSE ---
Patient with c/o pain of7 located in right buttock
--- NOTE | 2021-09-28 12:40 | NPU.GN ---
[facility] Topic:Coping Skills General Mood of Group: Alondra did not attend group today.
[2021-09-28] MEDS: hyDROXYzine 25 mg Capsule 50 MG PO (12:52)
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
[2021-09-28 14:00] VITALS: BP 125/82; PULSE 98; RESP 16; TEMP 36.7; O2SAT 98
[2021-09-28] MEDS: paliperidone ER 6 mg Tablet PO (16:44)
[2021-09-28 17:05] VITALS: BP 131/95; PULSE 102; RESP 20; TEMP 36.6; O2SAT 99
[2021-09-28 20:07] VITALS: BP 157/91; PULSE 119; RESP 16; TEMP 36.6; O2SAT 98
[2021-09-28] MEDS: LORazepam 0.5 mg Tablet PO (20:35)
--- NOTE | 2021-09-29 02:09 | PC.NURSE ---
Patient rcvd one time order for 0.5mg Ativan PO, patient took willingly but refused scheduled 2100 Mirtazapine. Patient up to nurses desk frequently with disorganized thought processes, flight of ideas, and paranoia. Patient stated I think they are putting abilify in my food, I need my name on my tray changed. Patient also stated that if she saw Dr. Elizalde again and he tried to get her to take meds she would poke his eyes out. She also believes another patient on the unit is her bfs other girlfriend and is here to spy on her. I assured her no one by the name she stated was on this unit and reassured patient several times thoughout the shift and educated patient on rules of the unit and that making threats is not okay. Patient verbalized understanding but continued to ramble and have disorganized thoughts and paranoia.
[2021-09-29 06:00] VITALS: BP 125/69; PULSE 119; RESP 18; O2SAT 96
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
[2021-09-29] MEDS: paliperidone ER 6 mg Tablet PO (11:33)
[2021-09-29] MEDS: ARIPiprazole 10 mg Tablet PO (11:33)
--- NOTE | 2021-09-29 12:38 | NPU.GN ---
[facility] Group Topic:Symptoms/ Judgment Boat Activity General Mood of Group: Alondra did attend and participate in group today. Hygiene was ok. She was overly social in group and started to upset others with her obsessive behavior / discussion about her thoughts on being poisoned and cult stuff.
[2021-09-29 13:49] VITALS: BP 128/77; PULSE 112; RESP 16; TEMP 36.7; O2SAT 98
[2021-09-29 14:00] VITALS: BP 128/77; PULSE 112; RESP 16; TEMP 36.7; O2SAT 98
[2021-09-29] MEDS: acetaminophen 325 mg Tablet 650 MG PO ×2 (14:22→20:37)
[2021-09-29] MEDS: LORazepam 0.5 mg Tablet PO (20:37)
[2021-09-29 21:51] VITALS: BP 145/99; PULSE 110; RESP 16; TEMP 36.4; O2SAT 97
--- NOTE | 2021-09-30 00:20 | PC.NURSE ---
2036-Tylenol 650 mg po given for buttock and shoulder pain. rates pain 8. 2136-Rates pain a 3 states it was effective.
[2021-09-30 06:00] VITALS: BP 134/95; PULSE 113; RESP 18; O2SAT 98
[2021-09-30] MEDS: acetaminophen 325 mg Tablet 650 MG PO ×2 (07:07→19:38)
[2021-09-30] MEDS: paliperidone ER 6 mg Tablet PO (09:57)
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
[2021-09-30 14:00] VITALS: BP 134/90; PULSE 104; RESP 18; TEMP 36.7; O2SAT 97
[2021-09-30] MEDS: fluoxetine 10 mg Capsule PO (17:11)
[2021-09-30 19:45] VITALS: BP 135/94; PULSE 117; RESP 17; TEMP 36.9; O2SAT 96
[2021-09-30] MEDS: LORazepam 0.5 mg Tablet PO (20:36)
[2021-10-01] MEDS: acetaminophen 325 mg Tablet 650 MG PO ×3 (05:24→20:49)
[2021-10-01 06:00] VITALS: BP 135/83; PULSE 115; RESP 18; TEMP 36.7; O2SAT 98
[2021-10-01] MEDS: paliperidone ER 6 mg Tablet PO (09:43)
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
[2021-10-01 14:00] VITALS: BP 143/94; PULSE 111; RESP 17; TEMP 36.4; O2SAT 98
[2021-10-01] MEDS: fluoxetine 10 mg Capsule PO (15:50)
[2021-10-01] MEDS: LORazepam 0.5 mg Tablet PO (20:29)
[2021-10-01 21:11] VITALS: BP 138/84; PULSE 111; RESP 18; TEMP 36.6; O2SAT 99
--- NOTE | 2021-10-01 22:25 | PC.NURSE ---
2049- rec'd tylenol for shoulder pain. 2149- States it is helping.
[2021-10-02 04:07] VITALS: BMI 24.5
[2021-10-02] MEDS: acetaminophen 325 mg Tablet 650 MG PO ×3 (05:34→21:46)
[2021-10-02 06:00] VITALS: BP 114/74; PULSE 129; RESP 18; TEMP 36.8; O2SAT 97
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
[2021-10-02] MEDS: paliperidone ER 6 mg Tablet PO (07:54)
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
--- NOTE | 2021-10-02 13:02 | PC.NURSE ---
Patient has been increasingly getting agitated about the IM Invega that she will get today. It was just reported by a patient that she was walking in circles in the dayroom spouting random statements that this is just like when the jews were pumped full of oxygen & seeing how long it would take for them to . Multiple staff members have attempted to redirect her thoughts & actions, however she continues to make delusional & paranoid statements about patients having it out for her & she is going to [facility]. She has told me multiple times you will get what you have coming to you & God will get you for what you are doing .
[2021-10-02] MEDS: paliperidone palmitate 234 mg Syringe IM (13:28)
[2021-10-02 14:00] VITALS: BP 129/89; PULSE 108; RESP 20; TEMP 36.7; O2SAT 98
[2021-10-02] MEDS: fluoxetine 20 mg Capsule PO (16:50)
[2021-10-02 21:28] VITALS: BP 137/90; PULSE 112; RESP 18; TEMP 37; O2SAT 98
[2021-10-02] MEDS: LORazepam 0.5 mg Tablet PO (21:30)
[2021-10-03] MEDS: acetaminophen 325 mg Tablet 650 MG PO ×3 (04:19→20:33)
[2021-10-03 06:00] VITALS: BP 122/86; PULSE 125; RESP 15; TEMP 37; O2SAT 97
--- NOTE | 2021-10-03 08:16 | PC.NURSE ---
Patient's mom called to report everything Alondra has been saying about her childhood is true. I forwarded information to Dr Mendez.
[2021-10-03] MEDS: paliperidone ER 6 mg Tablet PO (10:17)
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
[2021-10-03 14:00] VITALS: BP 125/83; PULSE 94; RESP 18; TEMP 36.9; O2SAT 96
[2021-10-03] MEDS: fluoxetine 20 mg Capsule PO (16:11)
[2021-10-03 20:18] VITALS: BP 140/87; PULSE 90; RESP 20; TEMP 36.8; O2SAT 99
[2021-10-03] MEDS: LORazepam 0.5 mg Tablet PO (20:34)
[2021-10-04 06:00] VITALS: BP 114/78; PULSE 98; RESP 16; TEMP 36.4; O2SAT 98
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
[2021-10-04 07:58] LABS: Bilirubin Urine Neg (Negative); Blood Urine 2+ (Negative); Glucose Urine UA Norm (Normal); Ketones Urine Negative (Negative); Leukocyte Esterase Urine Negative (Negative); Nitrate Urine Negative (Negative); Protein Urine Neg (Negative); Urine Appearance Clear (CLEAR); Urine Color Yellow (Yellow); Urobilinogen Urine Norm (Negative); pH Urine 5 (5-7)
[2021-10-04 07:59] LABS: Add Urine Culture? No; Bacteria Urine 1+ /hpf; Mucus Urine 2+ /hpf; RBC Urine 0-4 /hpf (0-2); Squamous Epithelial Cell Urine 0-4 /hpf (0-5)
[2021-10-04] MEDS: paliperidone ER 6 mg Tablet PO (08:28)
--- NOTE | 2021-10-04 11:46 | NPU.GN ---
[facility] Topic:Dice Breaker Group Activity General Mood of Group: Alondra did attend and participate in group. She was very social and enjoyed the group activity. She was reminded by this writer technical publications about being disruptive in group with talking over others. Client seems very fixated on herself and things that happened in her life. It started to upset others in group. This writer technical publications de-escalated the tension and then things were fine. Her hygiene was good and she seems emotionally stable .
[2021-10-04] MEDS: acetaminophen 325 mg Tablet 650 MG PO ×2 (13:14→20:09)
[2021-10-04 14:00] VITALS: BP 131/87; PULSE 121; RESP 18; TEMP 36.8; O2SAT 99
[2021-10-04] MEDS: fluoxetine 20 mg Capsule PO (17:13)
[2021-10-04] MEDS: LORazepam 0.5 mg Tablet 0.25 MG PO (20:09)
[2021-10-04 22:00] VITALS: BP 112/80; PULSE 109; RESP 20; TEMP 36.6; O2SAT 97
[2021-10-05 06:00] VITALS: BP 114/78; PULSE 111; RESP 17; TEMP 36.6; O2SAT 97
[2021-10-05] MEDS: acetaminophen 325 mg Tablet 650 MG PO ×3 (09:04→21:09)
[2021-10-05] MEDS: paliperidone ER 6 mg Tablet PO (10:02)
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
--- NOTE | 2021-10-05 11:15 | NPU.GN ---
[facility] Topic: Thought Process General Mood of Group: Alondra did attend and participate in group. She was reminded to not disrupt group. She was social and her hygiene was good.
[2021-10-05 13:23] VITALS: BP 126/87; PULSE 90; RESP 17; TEMP 36.7; O2SAT 97
[2021-10-05] MEDS: fluoxetine 20 mg Capsule PO (17:31)
[2021-10-05] MEDS: LORazepam 0.5 mg Tablet 0.25 MG PO (20:38)
[2021-10-05 21:56] VITALS: BP 109/73; PULSE 93; RESP 18; TEMP 36.9; O2SAT 96
[2021-10-06 06:00] VITALS: BP 112/78; PULSE 93; RESP 16; TEMP 36.7; O2SAT 96
[2021-10-06] MEDS: acetaminophen 325 mg Tablet 650 MG PO ×4 (06:29→20:34)
[2021-10-06] MEDS: artificial tears Op Soln 15 mL Btl 1 DROP EYE-BOTH (07:52)
[2021-10-06] MEDS: paliperidone ER 6 mg Tablet PO (08:56)
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
[2021-10-06 13:55] VITALS: BP 107/67; PULSE 85; RESP 17; TEMP 37; O2SAT 97
[2021-10-06] MEDS: fluoxetine 20 mg Capsule PO (16:39)
[2021-10-06 19:41] VITALS: BP 131/88; PULSE 88; RESP 18; TEMP 36.6; O2SAT 98
[2021-10-06] MEDS: LORazepam 0.5 mg Tablet 0.25 MG PO (20:14)
--- NOTE | 2021-10-06 21:11 | PC.NURSE ---
Patient came to nurses station and complained of foot pain. Tylenol was given and successful.
[2021-10-07] MEDS: acetaminophen 325 mg Tablet 650 MG PO ×4 (04:49→21:58)
[2021-10-07] MEDS: artificial tears Op Soln 15 mL Btl 1 DROP EYE-BOTH (04:52)
[2021-10-07 06:00] VITALS: BP 104/72; PULSE 85; RESP 16; TEMP 36.7; O2SAT 98
[2021-10-07] MEDS: paliperidone ER 6 mg Tablet PO (09:10)
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
[2021-10-07 13:38] VITALS: BP 131/88; PULSE 83; RESP 17; TEMP 36.8; O2SAT 98
[2021-10-07] MEDS: fluoxetine 20 mg Capsule PO (16:35)
[2021-10-07 20:08] VITALS: BP 115/76; PULSE 88; RESP 18; TEMP 36.9; O2SAT 97
[2021-10-07] MEDS: LORazepam 0.5 mg Tablet 0.25 MG PO (21:12)
[2021-10-08] MEDS: acetaminophen 325 mg Tablet 650 MG PO ×3 (04:06→20:08)
[2021-10-08 06:00] VITALS: BP 123/81; PULSE 84; RESP 18; O2SAT 97
[2021-10-08] MEDS: paliperidone ER 6 mg Tablet PO (08:24)
[2021-10-08] MEDS: artificial tears Op Soln 15 mL Btl 1 DROP EYE-BOTH ×3 (09:03→17:50)
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
[2021-10-08 14:00] VITALS: BP 124/84; PULSE 107; RESP 22; TEMP 36.7; O2SAT 97
[2021-10-08] MEDS: fluoxetine 20 mg Capsule PO (16:52)
[2021-10-08] MEDS: LORazepam 0.5 mg Tablet 0.25 MG PO (20:08)
[2021-10-08 21:11] VITALS: BP 134/92; PULSE 94; RESP 20; TEMP 36.4; O2SAT 97
--- NOTE | 2021-10-08 22:04 | PC.NURSE ---
2007 c/o anxiety and hip pain ativan and tylenol given po. 2107- states she is feeling better.
[2021-10-09] MEDS: bisacodyl 5 mg Tablet PO (05:35)
[2021-10-09 06:00] VITALS: BP 113/80; PULSE 90; RESP 18; TEMP 36.4; O2SAT 96; BMI 25.7
[2021-10-09] MEDS: paliperidone ER 6 mg Tablet PO (08:49)
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
[2021-10-09 14:00] VITALS: BP 115/79; PULSE 100; RESP 17; TEMP 36.6; O2SAT 97
[2021-10-09] MEDS: paliperidone palmitate 156 mg Syringe IM (14:03)
[2021-10-09] MEDS: acetaminophen 325 mg Tablet 650 MG PO ×2 (15:01→20:59)
[2021-10-09] MEDS: fluoxetine 20 mg Capsule PO (17:39)
[2021-10-09 19:32] VITALS: BP 116/84; PULSE 112; RESP 18; TEMP 36.7; O2SAT 98
[2021-10-09] MEDS: LORazepam 0.5 mg Tablet 0.25 MG PO (21:01)
[2021-10-10] MEDS: acetaminophen 325 mg Tablet 650 MG PO (03:20)
[2021-10-10 06:00] VITALS: BP 109/71; PULSE 62; RESP 17; TEMP 37; O2SAT 99
[2021-10-10] MEDS: paliperidone ER 6 mg Tablet PO (08:27)
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
[2021-10-10 11:13] VITALS: BP 109/71; PULSE 62; RESP 17; TEMP 37; O2SAT 99
== END 2021-10-10 11:45 | disposition home or self-care (01) | DRG 885 ==
LOC: ER 18:34 → NP 20:02
PROVIDERS: Psychiatry & Neurology Psychiatry; Admitting Provider Psychiatry & Neurology Psychiatry; Emergency Provider Physician Assistant; Visit Provider Psychiatry & Neurology Psychiatry
DX: F25.0 Schizoaffective disorder, bipolar type (principal); F41.8 Other specified anxiety disorders; G89.29 Other chronic pain; Z86.19 Personal history of other infectious and parasitic diseases; Z87.891 Personal history of nicotine dependence; F10.21 Alcohol dependence, in remission; N76.0 Acute vaginitis; M54.12 Radiculopathy, cervical region
CPT/HCPCS: 80053; 80306; 80307; 81001; 85025; 87210; 87491; 87591; 90471; 90686; 93005; 96372; 97150; 97165; 99285

== ENCOUNTER → 2021-10-11 14:13 | Outpatient (BNVA) | payer MEDICAID, SELFPAY | PROVIDERS: Visit Provider Nurse Practitioner Psychiatric/Mental Health | DX: F25.0 Schizoaffective disorder, bipolar type (principal); Z03.89 Encounter for observation for other suspected diseases and conditions ruled out; G25.71 Drug induced akathisia | CPT/HCPCS: 99215 ==

== ENCOUNTER 2021-10-11 18:52 | Emergency (ER) | payer MEDICAID, SELFPAY | END 2021-10-11 19:16 | PROVIDERS: Emergency Provider Family Medicine | DX: Z53.21 Procedure and treatment not carried out due to patient leaving prior to being seen by health care provider (principal) | CPT/HCPCS: 80306 ==

== ENCOUNTER → 2021-10-17 13:35 | Outpatient (BNVA) | payer MEDICAID, SELFPAY | PROVIDERS: PCP Family Medicine Adult Medicine; Visit Provider Nurse Practitioner Psychiatric/Mental Health | DX: F25.0 Schizoaffective disorder, bipolar type (principal) | CPT/HCPCS: 99215 ==

== ENCOUNTER → 2021-11-09 14:32 | Outpatient (BNVA) | payer MEDICAID, SELFPAY | PROVIDERS: PCP Family Medicine Adult Medicine; Visit Provider Psychiatry & Neurology Psychiatry | DX: F60.3 Borderline personality disorder (principal); F43.12 Post-traumatic stress disorder, chronic; F12.20 Cannabis dependence, uncomplicated; F10.21 Alcohol dependence, in remission; F15.21 Other stimulant dependence, in remission; F19.959 Other psychoactive substance use, unspecified with psychoactive substance-induced psychotic disorder, unspecified | CPT/HCPCS: 99204 ==

== ENCOUNTER → 2021-12-14 15:18 | Outpatient (BNVA) | payer MEDICAID, SELFPAY | PROVIDERS: PCP Family Medicine Adult Medicine; Visit Provider Psychiatry & Neurology Psychiatry | DX: F43.12 Post-traumatic stress disorder, chronic (principal); F19.959 Other psychoactive substance use, unspecified with psychoactive substance-induced psychotic disorder, unspecified; F15.21 Other stimulant dependence, in remission; F10.21 Alcohol dependence, in remission; F12.20 Cannabis dependence, uncomplicated; F60.3 Borderline personality disorder | CPT/HCPCS: 99213 ==

== ENCOUNTER 2022-02-14 20:13 | Emergency (ER) | payer MEDICAID, SELFPAY ==
--- NOTE | 2022-02-14 20:17 | ECG_ITS ---
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 Measurements Intervals [place] Rate: 48 P: 3 NC: 153 QRS: 51 QRSD: 90 T: 58 QT: 426 QTc: 381 Interpretive Statements SINUS BRADYCARDIA LOW QRS VOLTAGE IN PRECORDIAL LEADS [QRS DEFLECTION < 1.0 mV IN CHEST LEADS] Compared to ECG 09/26/2021 16:46:13 Low QRS voltage now present Sinus rhythm no longer present Electronically Signed On 02-15-2022 10:23:52 CDT by Vlad Galloway M.D. [id number]
[2022-02-14 20:25] VITALS: BP 125/85; PULSE 60; RESP 18; TEMP 36.8; O2SAT 98; BMI 25.4
--- NOTE | 2022-02-14 21:16 | XRR_ITS ---
PROCEDURE INFORMATION: Exam: XR Chest Exam date and time: 02/14/2022 9:29 PM Age: 46 years old Clinical indication: Other: Palpitations per patient; Additional info: Sob/ fluttering in chest per patient TECHNIQUE: Imaging protocol: Radiologic exam of the chest. Views: 1 view. COMPARISON: CR XR chest 1V portable [id number] 09/01/2021 10:39 PM FINDINGS: Lungs: No consolidation. Pleural spaces: Unremarkable. No pleural effusion. No pneumothorax. Heart/Mediastinum: No cardiomegaly. Bones/joints: No acute findings. XR/XR chest 1V portable [id number] IMPRESSION: No acute findings.
--- NOTE | 2022-02-14 21:17 | ECG_ITS ---
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 Measurements Intervals [place] Rate: 58 P: 60 KS: 166 QRS: 48 QRSD: 99 T: 54 QT: 412 QTc: 406 Interpretive Statements SINUS BRADYCARDIA WITH MARKED SINUS ARRHYTHMIA Compared to ECG 09/26/2021 16:46:13 Sinus rhythm no longer present Electronically Signed On 02-15-2022 10:23:26 CDT by Vlad Galloway M.D. [email or web address] [email or web address] health [id number] [email or web address]
--- NOTE | 2022-02-14 21:17 | ED_ITS ---
HPI - General Adult General: Chief complaint: General Medical Stated complaint: Heart palpitations Time Seen by Provider: 02/14/22 21:11 History of Present Illness: 46-year-old presents to palpitations shortness of breath. States this is been ongoing for several months. She had a Holter monitor in August without acute abnormality. Denies any syncopal episodes. Denies any chest pain. She is PERC negative. Denies any fevers chills or cough. Review of Systems Narrative: - CONSTITUTIONAL: Denies weight loss, fever and chills. - HEENT: Denies changes in vision and hearing. - RESPIRATORY: As above - CV: As above - GI: Denies abdominal pain, nausea, vomiting and diarrhea. - : Denies dysuria and urinary frequency. - MSK: Denies myalgia and joint pain. - SKIN: Denies rash and pruritus. - NEUROLOGICAL: Denies headache, weakness, numbness and syncope. - PSYCHIATRIC: Denies suicidal ideation PFS ED PFSH: Medical History Akathisia Anxiety about health Chronic pain Chronic pain disorder Gastroenteritis Genital herpes Glycosuria Hepatitis C History of endometrial hyperplasia Insomnia Psychiatric care Schizoaffective disorder, bipolar type Surgical History History of tonsillectomy and adenoidectomy Hx of hysterectomy Hx of tubal ligation Family History Other Cancer Heart disease Social History Smoking and tobacco status: former smoker Alcohol intake: former Adopted: No Caregiver/support person: No Lives independently: Yes Household members: significant other Housing: Other Marital status: Legally Number of children: 3 Number of grandchildren: 0 Highest education level completed: Bachelor's Degree service: No Current occupational status: employed Current occupation: [employer] in [place], [place] History of recent travel: No Female Reproductive History: Date of last menstrual period: 09/15/21 Physical Exam Narrative: EXAM NARRATIVE: - GENERAL: Alert and oriented x 3. No acute distress. Well-nourished. - EYES: EOMI. Anicteric. - HENT: Atraumatic, no C-spine tenderness. Moist mucous membranes. No scleral icterus. No cervical lymphadenopathy. - LUNGS: Clear to auscultation bilaterally. No accessory muscle use. Equal lung sounds bilaterally. No respiratory distress. - CARDIOVASCULAR: Regular rate and rhythm. No murmur. No JVD. - ABDOMEN: Soft, non-tender and non-distended. Negative CVA tenderness bilaterally, no rebound or guarding, negative Hale sign. No palpable masses. - EXTREMITIES: No edema. Non-tender. - SKIN: No rashes or lesions. Warm. - NEUROLOGIC: No meningismus or focal neurological deficits. CN II-XII grossly intact. - PSYCHIATRIC: Cooperative. Appropriate mood and affect. Course Vital Signs: Vital signs: Vital Signs Temperature 98.3 F 02/14/22 20:25 Pulse Rate 60 02/14/22 20:25 Respiratory Rate 18 02/14/22 20:25 Blood Pressure 125/85 02/14/22 20:25 Pulse Oximetry 98 02/14/22 20:25 MDM - General Adult Medical Decision Making 46-year-old presents with palpitations and mild shortness of breath. She is saturating well on room air. Patient is mildly bradycardic but has had history of similar bradycardia in the past. She is hemodynamically stable. EKG does not reveal any sign of other arrhythmia. Lab work is unremarkable. X-ray does not reveal pneumothorax or consolidation. She has no focal infectious symptoms. She had a Holter monitor for similar symptoms recently without acute events. At this time I believe patient would be safe for discharge and outpatient follow-up. Return precautions provided. Plan was reviewed with the patient who expressed understanding. Questions answered. Patient will follow up with PCP. Patient discharged in stable condition. Lab Data : 02/14/22 21:23 02/14/22 21: Laboratory Results WBC 6.2 10^3/uL (4.0-10.0) 02/14/22 21: RBC 3.94 10^6/uL (4.1-5.3) L 02/14/22 21: Hgb 12.3 g/dL (11.5-15.3) 02/14/22 21: Hct 36.4 % (37.0-47.0) L 02/14/22 21: MCV 92.4 fl (81-99) 02/14/22 21: MCH 31.2 pg (28.0-34.0) 02/14/22 21: MCHC 33.8 g/dL (30.0-36.0) 02/14/22 21: RDW 12.3 % (12.1-15.1) 02/14/22 21: Plt Count 239 10^3/cmm (130-400) 02/14/22 21: MPV 10.3 fL (7.4-10.4) 02/14/22 21: Neut % (Auto) 50.7 % 02/14/22 21: Lymph % (Auto) 38.0 % 02/14/22 21: [place] % (Auto) 9.0 % 02/14/22 21: Eos % (Auto) 1.8 % 02/14/22 21: Baso % (Auto) 0.5 % 02/14/22 21: Neut # (Auto) 3.16 10^3/uL (1.8-7.7) 02/14/22 21: Lymph # (Auto) 2.4 10^3/uL (0.8-4.8) 02/14/22 21: [place] # (Auto) 0.6 10^3/uL (0.2-0.9) 02/14/22 21: Eos # (Auto) 0.1 10^3/uL (0.0-0.8) 02/14/22 21: Baso # (Auto) 0.0 10^3/uL (0.0-0.1) 02/14/22 21: Nucleated RBC % (auto) 0 % 02/14/22 21: Nucleated RBCs # 0.0 /100WBC 02/14/22 21: Sodium 140 mmol/L (136-145) 02/14/22 21: Potassium 4.0 mmol/L (3.5-5.1) 02/14/22 21: Chloride 104 mmol/L (98-107) 02/14/22 21: Carbon Dioxide 25 mmol/L (22-29) 02/14/22 21: Anion Gap 15.0 (5-19) 02/14/22 21: BUN 15 mg/dL (6-20) 02/14/22 21:23 Creatinine 0.8 mg/dL (0.5-0.9) 02/14/22 21:23 GFR Calculation 77.2 mL/min (90-130) L 02/14/22 21:23 Glucose 87 mg/dL (65-115) 02/14/22 21:23 Calculated Osmolality 290 mOsm/kg (285-295) 02/14/22 21:23 Calcium 9.1 mg/dL (8.5-10.5) 02/14/22 21:23 Total Bilirubin 0.2 mg/dL (0.15-1.2) 02/14/22 21:23 AST 13 U/L (0-32) 02/14/22 21:23 ALT 11 U/L (0-33) 02/14/22 21:23 Alkaline Phosphatase 54 IU/L (35-105) 02/14/22 21:23 Troponin T Baseline 6 ng/L (0-10) 02/14/22 21:23 Total Protein 7.0 g/dL (6.6-8.7) 02/14/22 21:23 Albumin 4.6 g/dL (3.5-5.2) 02/14/22 21:23 Globulin 2.4 g/dL (1.3-4.6) 02/14/22 21:23 TSH 1.20 uIU/mL (0.27-4.20) 02/14/22 21:23 Free T4 0.95 ng/dL (0.82-1.77) 02/14/22 21:23 EKG Data EKG 1: Other EKG comments: No sign ofSinus bradycardia, rate of 48, ischemia or other acute abnormality. Discharge Plan Discharge Condition: Stable Prescriptions: No Action acetaminophen [Tylenol] 325 mg capsule 650 mg PO QID PRN (Reason: fever or pain) 0RF trazodone 50 mg tablet 100 mg PO .HS PRN (Reason: insomnia) Qty: 60 2RF Referrals: Jovanni Nunez MD [Primary Care Provider] - Coding Level of Care Code ED Dietary Manager for Chg Fwd
[2022-02-14 21:27] LABS: Basophils % 0.5 %; Eosinophils # 0.1 10^3/uL (0.0-0.8); Eosinophils % 1.8 %; Hematocrit 36.4 % (37.0-47.0); Hemoglobin 12.3 g/dL (11.5-15.3); Lymphocytes # 2.4 10^3/uL (0.8-4.8); Mean Corpuscular HGB Conc 33.8 g/dL (30.0-36.0); Mean Corpuscular Hemoglobin 31.2 pg (28.0-34.0); Mean Corpuscular Volume 92.4 fl (81-99); Mean Platelet Volume 10.3 fL (7.4-10.4); Monocytes # 0.6 10^3/uL (0.2-0.9); Neutrophils # 3.16 10^3/uL (1.8-7.7); Neutrophils % 50.7 %; Nucleated Red Blood Cells % 0 %; Platelet Count 239 10^3/cmm (130-400); Red Blood Count 3.94 10^6/uL (4.1-5.3); Red Cell Distribution Width 12.3 % (12.1-15.1); White Blood Count 6.2 10^3/uL (4.0-10.0)
--- NOTE | 2022-02-14 21:35 | PC.NURSE ---
placed on bedside athletic monitor
[2022-02-14 21:50] LABS: Troponin(5th) Baseline 6 ng/L (0-10)
[2022-02-14 21:56] LABS: Alanine Aminotransferase 11 U/L (0-33); Albumin Level 4.6 g/dL (3.5-5.2); Alkaline Phosphatase 54 IU/L (35-105); Aspartate Amino Transferase 13 U/L (0-32); Blood Urea Nitrogen 15 mg/dL (6-20); Calcium 9.1 mg/dL (8.5-10.5); Carbon Dioxide 25 mmol/L (22-29); Chloride 104 mmol/L (98-107); Free T4 Free Thyroxine 0.95 ng/dL (0.82-1.77); Globulin 2.4 g/dL (1.3-4.6); Glomerular Filtration Rate 77.2 mL/min (90-130); Glucose 87 mg/dL (65-115); Osmolality Calculated 290 mOsm/kg (285-295); Sodium 140 mmol/L (136-145); Total Bilirubin 0.2 mg/dL (0.15-1.2)
[2022-02-14 22:10] VITALS: BP 110/66; PULSE 56; RESP 18; TEMP 36.7; O2SAT 99
== END 2022-02-14 22:10 | disposition home or self-care (01) ==
PROVIDERS: Emergency Provider Emergency Medicine; PCP Family Medicine Adult Medicine
DX: R00.2 Palpitations (principal); R06.02 Shortness of breath; Z86.19 Personal history of other infectious and parasitic diseases; Z87.891 Personal history of nicotine dependence
CPT/HCPCS: 71045; 80053; 84439; 84443; 84484; 85025; 93005; 99284

== ENCOUNTER 2022-11-26 00:14 | Emergency (ER) | payer MEDICAID, SELFPAY ==
[2022-11-26 00:19] VITALS: BP 157/96; PULSE 75; RESP 20; TEMP 37.1; O2SAT 99; BMI 21.7
--- NOTE | 2022-11-26 00:21 | ECG_ITS ---
[facility] Test Date: 2022-11-26 Pat Name: Alondra Lange Department: Room: Gender: Female Wire Tester: : 1975 Requested By: Sebas Cardenas Order Number: [id number] Suzanna MD: Trey Ashton M.D. Measurements Intervals [place] Rate: 85 P: 80 VA: 170 QRS: 64 QRSD: 85 T: 60 QT: 391 QTc: 465 Interpretive Statements SINUS RHYTHM Possible left atrial enlargement Compared to ECG 02/14/2022 21:33:34 Sinus bradycardia no longer present Electronically Signed On 11-26-2022 21:59:05 CDT by Trey Ashton M.D. [id number]
[2022-11-26 00:24] VITALS: BP 157/96; PULSE 64; RESP 18; O2SAT 99
--- NOTE | 2022-11-26 00:24 | W.ED.CHESTPA ---
HPI - Chest Pain General: Chief Complaint: Chest Pain Stated Complaint: Heart Papilations Time Seen by Provider: 11/26/22 00:20 Source: patient Mode of arrival: ambulatory Limitations: no limitations History of Present Illness: 47-year-old female states that she has been having palpitations this evening. States she has been under a lot of stress states she started a new job recently and her 72-year-old mother moved in with her as well. States she is also quit using marijuana over the last 4 days she had some slight diarrhea states that tonight she felt like her heart was racing is having some palpitations feeling slightly anxious denies any chest pain denies any abdominal pain denies any fever denies any shortness of breath. Associated symptoms: Reports palpitations; Deny dyspnea or fever(s) Review of Systems Const: Denies: fever(s), chills, body aches or change in appetite Eyes: Denies: blurry vision or eye discomfort ENMT: Denies: throat pain or dental pain Card: Reports: palpitations Resp: Denies: dyspnea GI: Reports: diarrhea : Denies: dysuria Musc: Denies: neck pain or back pain Skin/Breast: Denies: rash Neuro: Denies: headache(s) Psych: Denies: depression Jarad/Lymph: Denies: easy bruising All/Imm: Denies: urticaria PFSH ED PFSH: Medical History Akathisia Anxiety about health Chronic pain Chronic pain disorder Gastroenteritis Genital herpes Glycosuria Hepatitis C History of endometrial hyperplasia Insomnia Psychiatric care Schizoaffective disorder, bipolar type Surgical History History of tonsillectomy and adenoidectomy Hx of hysterectomy Hx of tubal ligation Family History Other Cancer Heart disease Social History Smoking and tobacco status: current every day smoker Alcohol intake: former Adopted: No Caregiver/support person: No Lives independently: Yes Household members: significant other Housing: Other Marital status: Legally Number of children: 3 Number of grandchildren: 0 Highest education level completed: Bachelor's Degree service: No Current occupational status: employed Current occupation: [employer] in [place], [place] Physical Exam Const: COMMON NORMALS: no acute distress, patient oriented x3 and healthy appearing HENMT: COMMON NORMALS: normocephalic and atraumatic HEAD & SCALP: normocephalic and atraumatic Eye: COMMON NORMALS: Equal, round and reactive pupils present and EOMs intact bilaterally PUPIL: Yes Equal, round and reactive pupils present Neck/C-Spine: COMMON NORMALS: full ROM and supple Chest: COMMONS NORMALS: normal inspection of the chest and normal palpation of entire chest wall Resp: COMMON NORMALS: normal respiratory effort, No retractions, No use of accessory muscles and clear to auscultation bilaterally AUSCULTATION: clear to auscultation bilaterally Cardio: COMMON NORMALS: regular rate, regular rhythm and No murmurs present (Cardio) RATE: regular rate RHYTHM: regular rhythm GI: COMMON NORMALS: Normal to inspection, nondistended, normoactive bowel sounds present, Soft to palpation, non-tender and no masses PALPATION: Yes Soft to palpation Extremity: COMMON NORMALS: normal to inspection and full ROM Neuro: COMMON NORMALS: patient oriented x3, moves all extremities and no focal motor deficits Psych: COMMON NORMALS: mental status grossly normal, Normal thought process present and cooperative THOUGHT PROCESS: Normal thought process present Skin: COMMON NORMALS: no rashes or lesions noted and no wounds GENERAL SKIN EXAM: no rashes or lesions noted Course Vital Signs: Vital signs: Vital Signs Temperature 98.8 F 11/26/22 00:19 Pulse Rate 64 11/26/22 00:24 Respiratory Rate 18 11/26/22 00:24 Blood Pressure 157/96 11/26/22 00:24 Pulse Oximetry 99 11/26/22 00:24 MDM - Chest Pain Medical Decision Making Patient presents for some palpitations likely from stress and anxiety she felt improved here after IV fluids she has had some slight diarrhea her blood work here is all normal she has had no chest pain x-ray and EKG are normal she has no signs of pulmonary embolism. She has no signs of any arrhythmias. She is stable for discharge she is to follow-up with PCP and return if worsening. Lab Data 11/26/22 00:44 11/26/22 00:44 Laboratory Results WBC 7.5 10^3/uL (4.0-10.0) 11/26/22 00:44 RBC 5.00 10^6/uL (4.1-5.3) 11/26/22 00:44 Hgb 15.5 g/dL (11.5-15.3) H 11/26/22 00:44 Hct 46.9 % (37.0-47.0) 11/26/22 00:44 MCV 93.8 fl (81-99) 11/26/22 00:44 MCH 31.0 pg (28.0-34.0) 11/26/22 00:44 MCHC 33.0 g/dL (30.0-36.0) 11/26/22 00:44 RDW 12.3 % (12.1-15.1) 11/26/22 00:44 Plt Count 310 10^3/cmm (130-400) 11/26/22 00:44 MPV 9.9 fL (7.4-10.4) 11/26/22 00:44 Neut % (Auto) 47.8 % 11/26/22 00:44 Lymph % (Auto) 43.4 % 11/26/22 00:44 [place] % (Auto) 5.9 % 11/26/22 00:44 Eos % (Auto) 2.3 % 11/26/22 00:44 Baso % (Auto) 0.5 % 11/26/22 00:44 Neut # (Auto) 3.56 10^3/uL (1.8-7.7) 11/26/22 00:44 Lymph # (Auto) 3.2 10^3/uL (0.8-4.8) 11/26/22 00:44 [place] # (Auto) 0.4 10^3/uL (0.2-0.9) 11/26/22 00:44 Eos # (Auto) 0.2 10^3/uL (0.0-0.8) 11/26/22 00:44 Baso # (Auto) 0.0 10^3/uL (0.0-0.1) 11/26/22 00:44 Nucleated RBC % (auto) 0 % 11/26/22 00:44 Nucleated RBCs # 0.0 /100WBC 11/26/22 00:44 Sodium 137 mmol/L (136-145) 11/26/22 00:44 Potassium 3.8 mmol/L (3.5-5.1) 11/26/22 00:44 Chloride 99 mmol/L (98-107) 11/26/22 00:44 Carbon Dioxide 26 mmol/L (22-29) 11/26/22 00:44 Anion Gap 15.8 (5-19) 11/26/22 00:44 BUN 11 mg/dL (6-20) 11/26/22 00:44 Creatinine 0.7 mg/dL (0.5-0.9) 11/26/22 00:44 GFR Calculation 89.7 mL/min (90-130) L 11/26/22 00:44 Glucose 89 mg/dL (65-115) 11/26/22 00:44 Calculated Osmolality 283 mOsm/kg (285-295) L 11/26/22 00:44 Calcium 9.9 mg/dL (8.5-10.5) 11/26/22 00:44 Total Bilirubin 0.3 mg/dL (0.15-1.2) 11/26/22 00:44 AST 23 U/L (0-32) 11/26/22 00:44 ALT 23 U/L (0-33) 11/26/22 00:44 Alkaline Phosphatase 61 U/L (35-105) 11/26/22 00:44 Total Protein 8.8 g/dL (6.6-8.7) H 11/26/22 00:44 Albumin 5.1 g/dL (3.5-5.2) 11/26/22 00:44 Globulin 3.7 g/dL (1.3-4.6) 11/26/22 00:44 EKG Data EKG 1: I personally reviewed and interpreted this EKG as follows: EKG interpretation date: 11/26/22 EKG interpretation time: 00:21 Interpretation: nsr hr [address] or t wave abnormalities qrs 85 qtc 433 Discharge Plan Discharge Patient Disposition: Home Clinical Impression: Palpitations, Diarrhea Condition: Stable Prescriptions: No Action acetaminophen [Tylenol] 325 mg capsule 650 mg PO QID PRN (Reason: fever or pain) trazodone 50 mg tablet 100 mg PO .HS PRN (Reason: insomnia) Qty: 60 2RF diphenhydramine HCl [Benadryl] 25 mg capsule 25 mg PO TID PRN clobetasol 0.05 % solution 1 applic topical BID 14 Days Qty: 50 3RF Rx Instructions: Apply a few drops to itchy areas on scalp as needed clindamycin phosphate 1 % solution 1 applic topical DAILY Qty: 60 0RF cetirizine [Zyrtec] 10 mg tablet 10 mg PO DAILY PRN (Reason: allergy symptoms) Qty: 30 0RF tretinoin 0.05 % cream 1 applic topical .qhs PRN (Reason: acne) Qty: 45 4RF Rx Instructions: apply pea sized amount to clean, dry face nightly ciclopirox 0.77 % cream 1 applic topical BID 28 Days Qty: 90 1RF Rx Instructions: Apply to whole foot and between toes twice daily for 4 weeks then PRN for flares doxycycline monohydrate 100 mg tablet 100 mg PO BID 10 Days Qty: 20 0RF Discharge Orders: Discharge ED (Routine); Ordered 11/26/22 Ordered By: Sebas Cardenas Referrals: Jovanni Nunez MD [Primary Care Provider] - 1-3 days Discharge Diet: Advance as tolerated Discharge Activity: Resume usual activity Patient Instructions: Diarrhea - Adult, Heart Palpitations (ED) Coding Level of Care Code ED Investigative Reporter for Tu Amezcua
--- NOTE | 2022-11-26 00:33 | PC.NURSE ---
Pt hooked up to continuous bedside cardiac monitoring.
[2022-11-26] MEDS: sodium chloride 0.9% 1,000 ML 999 ML IV (00:43)
[2022-11-26 00:49] LABS: Basophils % 0.5 %; Eosinophils # 0.2 10^3/uL (0.0-0.8); Eosinophils % 2.3 %; Hematocrit 46.9 % (37.0-47.0); Hemoglobin 15.5 g/dL (11.5-15.3); Lymphocytes # 3.2 10^3/uL (0.8-4.8); Lymphocytes % 43.4 %; Mean Corpuscular Volume 93.8 fl (81-99); Mean Platelet Volume 9.9 fL (7.4-10.4); Monocytes # 0.4 10^3/uL (0.2-0.9); Monocytes % 5.9 %; Neutrophils # 3.56 10^3/uL (1.8-7.7); Neutrophils % 47.8 %; Nucleated Red Blood Cells % 0 %; Platelet Count 310 10^3/cmm (130-400); Red Cell Distribution Width 12.3 % (12.1-15.1); White Blood Count 7.5 10^3/uL (4.0-10.0)
--- NOTE | 2022-11-26 00:53 | XRR_ITS ---
PROCEDURE INFORMATION: Exam: XR Chest Exam date and time: 11/26/2022 12:58 AM Age: 47 years old Clinical indication: Other: Palpitations; Patient HX: Anxious TECHNIQUE: Imaging protocol: Radiologic exam of the chest. Views: 1 view. COMPARISON: CR XR chest 1V portable [id number] 02/14/2022 9:29 PM FINDINGS: Lungs: Unremarkable. No consolidation. Pleural spaces: Unremarkable. No pleural effusion. No pneumothorax. Heart/Mediastinum: Unremarkable. No cardiomegaly. Bones/joints: Unremarkable. XR/XR chest 1V portable [id number] IMPRESSION: No acute findings.
[2022-11-26 01:08] LABS: Alanine Aminotransferase 23 U/L (0-33); Albumin Level 5.1 g/dL (3.5-5.2); Alkaline Phosphatase 61 U/L (35-105); Anion Gap 15.8 (5-19); Aspartate Amino Transferase 23 U/L (0-32); Blood Urea Nitrogen 11 mg/dL (6-20); Calcium 9.9 mg/dL (8.5-10.5); Carbon Dioxide 26 mmol/L (22-29); Chloride 99 mmol/L (98-107); Globulin 3.7 g/dL (1.3-4.6); Glomerular Filtration Rate 89.7 mL/min (90-130); Glucose 89 mg/dL (65-115); Osmolality Calculated 283 mOsm/kg (285-295); Potassium 3.8 mmol/L (3.5-5.1); Sodium 137 mmol/L (136-145); Total Bilirubin 0.3 mg/dL (0.15-1.2); Total Protein 8.8 g/dL (6.6-8.7)
[2022-11-26 01:18] VITALS: BP 141/90; PULSE 76; RESP 18; O2SAT 98
== END 2022-11-26 01:25 | disposition home or self-care (01) ==
PROVIDERS: Emergency Provider Emergency Medicine; PCP Family Medicine Adult Medicine
DX: R00.2 Palpitations (principal); R19.7 Diarrhea, unspecified; F17.210 Nicotine dependence, cigarettes, uncomplicated; Z86.19 Personal history of other infectious and parasitic diseases
CPT/HCPCS: 71045; 80053; 85025; 93005; 99285; J7030

== ENCOUNTER 2023-02-28 23:50 | Emergency (ER) | payer OTHER, MEDICAID, SELFPAY ==
[2023-02-28 23:56] VITALS: BP 129/82; PULSE 91; RESP 18; TEMP 36.4; O2SAT 98; BMI 24.3
--- NOTE | 2023-03-01 00:06 | ECG_ITS ---
[facility] Test Date: 2023-03-01 Pat Name: Alondra Lange Department: Room: Gender: Female Toe Lining Closer: : 1975 Requested By: Sebas Cardenas Order Number: [id number] Suzanna MD: Vlad Galloway M.D. Measurements Intervals [place] Rate: 73 P: 65 [place]: 176 QRS: 52 QRSD: 86 T: 52 QT: 358 QTc: 395 Interpretive Statements SINUS RHYTHM Compared to ECG 11/26/2022 00:21:58 No significant changes Electronically Signed On 03-01-2023 14:47:16 CDT by Vlad Galloway M.D. [id number] f
[2023-03-01 00:36] LABS: Basophils % 0.5 %; Eosinophils # 0.1 10^3/uL (0.0-0.8); Hematocrit 40.2 % (37.0-47.0); Hemoglobin 13.2 g/dL (11.5-15.3); Lymphocytes # 2.8 10^3/uL (0.8-4.8); Lymphocytes % 42.4 %; Mean Corpuscular HGB Conc 32.8 g/dL (30.0-36.0); Mean Corpuscular Hemoglobin 30.8 pg (28.0-34.0); Mean Corpuscular Volume 93.9 fl (81-99); Mean Platelet Volume 9.8 fL (7.4-10.4); Monocytes # 0.5 10^3/uL (0.2-0.9); Monocytes % 8.1 %; Neutrophils # 3.12 10^3/uL (1.8-7.7); Neutrophils % 46.8 %; Nucleated Red Blood Cells % 0 %; Platelet Count 264 10^3/cmm (130-400); Red Blood Count 4.28 10^6/uL (4.1-5.3); Red Cell Distribution Width 12.2 % (12.1-15.1); White Blood Count 6.7 10^3/uL (4.0-10.0)
[2023-03-01 00:55] LABS: Troponin(5th) Baseline 6 ng/L (0-10)
[2023-03-01 00:58] LABS: Alanine Aminotransferase 25 U/L (0-33); Albumin Level 4.9 g/dL (3.5-5.2); Alkaline Phosphatase 50 U/L (35-105); Aspartate Amino Transferase 23 U/L (0-32); Blood Urea Nitrogen 15 mg/dL (6-20); Calcium 9.2 mg/dL (8.5-10.5); Carbon Dioxide 27 mmol/L (22-29); Chloride 102 mmol/L (98-107); Glomerular Filtration Rate 76.9 mL/min (90-130); Glucose 90 mg/dL (65-115); Lipase 36 U/L (13-60); Osmolality Calculated 288 mOsm/kg (285-295); Sodium 139 mmol/L (136-145); Total Bilirubin 0.2 mg/dL (0.15-1.2); Total Protein 6.9 g/dL (6.6-8.7)
--- NOTE | 2023-03-01 00:59 | ED_ITS ---
HPI - Arrhythmia/Palpitations General: Chief Complaint: Arrhythmia/Palpitations Stated Complaint: chest pain/low bp Time Seen by Provider: 03/01/23 00:58 History of Present Illness: 47-year-old female comes in today for complaints of chest discomfort and irregular heart rate due to heat exposure. 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 Patient believes that doing that today made her feel sick causing her to feel short of breath, her blood pressure to drop, and the sensation of passing out. Patient reports symptoms have cleared up. Patient appears nontoxic. Patient appears in no severe pain. Patient has a history of anxiety. Associated symptoms: Reports anxiety Review of Systems General: Reports: 10 or more systems reviewed and unremarkable except in HPI and below Card: Reports: irregular heart rhythm Psych: Reports: anxiety PFS ED PFSH: Medical History (Updated 03/01/23 @ 01:08 by JOSE Cortés) Akathisia Alcohol use disorder, moderate, in early remission Anxiety about health Cannabis use disorder, severe, dependence Chronic pain disorder Gastroenteritis Genital herpes Glycosuria Hepatitis C History of endometrial hyperplasia Insomnia Methamphetamine use disorder, severe, in sustained remission Palpitations with regular cardiac rhythm Polysubstance (excluding opioids) dependence with physiological dependence alcohol, cannabis, methamphetamines with past psychosis Psychiatric care Schizoaffective disorder, bipolar type Substance-induced psychotic disorder Tick bite of multiple sites Surgical History History of tonsillectomy and adenoidectomy Hx of hysterectomy Hx of tubal ligation Family History Other Cancer Heart disease Social History Smoking and tobacco status: current every day smoker Alcohol intake: former Substance/Drug Use: former Date of last use: 2007 Adopted: No Caregiver/support person: No Lives independently: Yes Household members: significant other Housing: Other Marital status: Legally Number of children: 3 Number of grandchildren: 0 Highest education level completed: Bachelor's Degree service: No Current occupational status: employed Current occupation: [employer] in [place], [place] Physical Exam Const: COMMON NORMALS: alert HENMT: COMMON NORMALS: normocephalic HEAD & SCALP: normocephalic Neck/C-Spine: COMMON NORMALS: full ROM Resp: COMMON NORMALS: normal respiratory effort Cardio: COMMON NORMALS: regular rate RATE: regular rate Back/Pelvis: COMMON NORMALS: thoracic and lumbar spine normal to inspection Extremity: COMMON NORMALS: full ROM Neuro: SENSORIUM/ORIENTATION: Yes alert Skin: COMMON NORMALS: turgor normal GENERAL SKIN EXAM: turgor normal Course Vital Signs: Vital signs: Vital Signs Temperature 97.5 F L 02/28/23 23:56 Pulse Rate 91 02/28/23 23:56 Respiratory Rate 18 02/28/23 23:56 Blood Pressure 129/82 02/28/23 23:56 Pulse Oximetry 98 02/28/23 23:56 Oxygen Delivery Me thod Room Air 02/28/23 23:56 MDM - Arrhythmia/Palpitations Medical Decision Making 47-year-old female comes in today with complaints of irregular heart rate, low blood pressure, and fatigue. 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 Patient reports that this was more than she has had to do before and it made her feel real sick. On exam patient appears nontoxic. Respirations are even lungs are clear to auscultation. Heart rates regular with normal tones. Vital signs are normal. Differential diagnosis includes but not limited to ACS, electrolyte imbalance, dehydration, anxiety about health, heat exhaustion. Laboratory values were unremarkable. EKG was normal. No signs of severe illness or injury is noted. Reviewed exam with patient with recommendations for treatment and follow-up. Patient reported understanding. Lab Data 03/01/23 00:25 03/01/23 00:25 Laboratory Results WBC 6.7 10^3/uL (4.0-10.0) 03/01/23 00:25 RBC 4.28 10^6/uL (4.1-5.3) 03/01/23 00:25 Hgb 13.2 g/dL (11.5-15.3) 03/01/23 00:25 Hct 40.2 % (37.0-47.0) 03/01/23 00:25 MCV 93.9 fl (81-99) 03/01/23 00:25 MCH 30.8 pg (28.0-34.0) 03/01/23 00:25 MCHC 32.8 g/dL (30.0-36.0) 03/01/23 00:25 RDW 12.2 % (12.1-15.1) 03/01/23 00:25 Plt Count 264 10^3/cmm (130-400) 03/01/23 00:25 MPV 9.8 fL (7.4-10.4) 03/01/23 00:25 Neut % (Auto) 46.8 % 03/01/23 00:25 Lymph % (Auto) 42.4 % 03/01/23 00:25 [place] % (Auto) 8.1 % 03/01/23 00:25 Eos % (Auto) 2.0 % 03/01/23 00:25 Baso % (Auto) 0.5 % 03/01/23 00:25 Neut # (Auto) 3.12 10^3/uL (1.8-7.7) 03/01/23 00:25 Lymph # (Auto) 2.8 10^3/uL (0.8-4.8) 03/01/23 00:25 [place] # (Auto) 0.5 10^3/uL (0.2-0.9) 03/01/23 00:25 Eos # (Auto) 0.1 10^3/uL (0.0-0.8) 03/01/23 00:25 Baso # (Auto) 0.0 10^3/uL (0.0-0.1) 03/01/23 00:25 Nucleated RBC % (auto) 0 % 03/01/23 00:25 Nucleated RBCs # 0.0 /100WBC 03/01/23 00:25 Sodium 139 mmol/L (136-145) 03/01/23 00:25 Potassium 4.0 mmol/L (3.5-5.1) 03/01/23 00:25 Chloride 102 mmol/L (98-107) 03/01/23 00:25 Carbon Dioxide 27 mmol/L (22-29) 03/01/23 00:25 Anion Gap 14.0 (5-19) 03/01/23 00:25 BUN 15 mg/dL (6-20) 03/01/23 00:25 Creatinine 0.8 mg/dL (0.5-0.9) 03/01/23 00:25 GFR Calculation 76.9 mL/min (90-130) L 03/01/23 00:25 Glucose 90 mg/dL (65-115) 03/01/23 00:25 Calculated Osmolality 288 mOsm/kg (285-295) 03/01/23 00:25 Calcium 9.2 mg/dL (8.5-10.5) 03/01/23 00:25 Total Bilirubin 0.2 mg/dL (0.15-1.2) 03/01/23 00:25 AST 23 U/L (0-32) 03/01/23 00:25 ALT 25 U/L (0-33) 03/01/23 00:25 Alkaline Phosphatase 50 U/L (35-105) 03/01/23 00:25 Troponin T Baseline 6 ng/L (0-10) 03/01/23 00:25 Total Protein 6.9 g/dL (6.6-8.7) 03/01/23 00:25 Albumin 4.9 g/dL (3.5-5.2) 03/01/23 00:25 Globulin 2.0 g/dL (1.3-4.6) 03/01/23 00:25 Lipase 36 U/L (13-60) 03/01/23 00:25 Discharge Plan Discharge Patient Disposition: Home Clinical Impression: Heat effect Qualifiers: Encounter type: initial encounter Qualified Code(s): T67.9XXA - Effect of heat and light, unspecified, initial encounter Condition: Stable Prescriptions: No Action acetaminophen [Tylenol] 325 mg capsule 650 mg PO QID PRN (Reason: fever or pain) trazodone 50 mg tablet 100 mg PO .HS PRN (Reason: insomnia) Qty: 60 2RF diphenhydramine HCl [Benadryl] 25 mg capsule 25 mg PO TID PRN cetirizine [Zyrtec] 10 mg tablet 10 mg PO DAILY PRN (Reason: allergy symptoms) Qty: 30 0RF doxycycline hyclate 100 mg capsule 100 mg PO BID Qty: 20 0RF Discharge Orders: Discharge ED (Routine); Ordered 03/01/23 Ordered By: Carrington Gomez Discharge Diet: Usual diet Discharge Activity: Increase activity as tolerated Patient Instructions: Heat Exhaustion (ED) Activity Restrictions/Additional Instructions: Drink plenty of fluids and stay well-hydrated. Activity as tolerated. Stand Alone Forms: Work/School Release Coding Level of Care Code ED Router Operator Radial for Tu Amezcua
[2023-03-01 01:51] VITALS: BP 133/80; PULSE 71; RESP 16; O2SAT 96
== END 2023-03-01 01:53 | disposition home or self-care (01) ==
PROVIDERS: Emergency Medicine; Emergency Provider Nurse Practitioner Family
DX: T67.9XXA Effect of heat and light, unspecified, initial encounter (principal); R07.89 Other chest pain; I49.9 Cardiac arrhythmia, unspecified; F41.9 Anxiety disorder, unspecified; Z87.891 Personal history of nicotine dependence; X58.XXXA Exposure to other specified factors, initial encounter
CPT/HCPCS: 36415; 80053; 83690; 84484; 85025; 93005; 99284

== ENCOUNTER 2023-04-26 05:38 | Emergency (ER) | payer OTHER, MEDICAID, SELFPAY ==
[2023-04-26 05:50] VITALS: BP 137/83; PULSE 70; RESP 16; TEMP 36.4; O2SAT 100; BMI 24.0
[2023-04-26] MEDS: tizanidine 4 mg Tablet PO (06:37)
--- NOTE | 2023-04-26 06:50 | W.ED.NECK ---
HPI - Neck Pain/Injury General: Chief Complaint: Neck Pain/Injury Stated Complaint: neck/ear pain Time Seen by Provider: 04/26/23 05:49 Source: patient Mode of arrival: ambulatory History of Present Illness: 47-year-old female presents emergency room complaining of left-sided neck pain radiating up into the base of skull to mastoid process. Worse when she moves her head she is also concerned she may have an ear infection she has had pain seems to radiate into the left ear at times has not had any drainage no fever sweats or chills seem to start after she was doing some lifting and pulling. No radiation of pain into the left arm. MD complaint: neck pain and neck injury Onset (ago): day(s) Radiation: left lateral Relieving factors: none Exacerbating factors: none Associated symptoms: Denies difficulty walking, fevers/chills, headache(s), nausea, swollen glands, tingling or weakness Review of Systems Const: Reports: fatigue and malaise; Denies: fever(s) or chills ENMT: Reports: ear or mastoid pain; Denies: throat pain, nasal discharge or nasal congestion Card: Denies: chest pain Resp: Denies: dyspnea or non-productive cough GI: Denies: abdominal pain, nausea or vomiting Musc: Reports: neck pain Skin/Breast: Denies: rash or pruritus Neuro: Denies: headache(s) or difficulty walking PFSH ED PFSH: Medical History Akathisia Alcohol use disorder, moderate, in early remission Anxiety about health Cannabis use disorder, severe, dependence Chronic pain disorder Gastroenteritis Genital herpes Glycosuria Hepatitis C History of endometrial hyperplasia Insomnia Methamphetamine use disorder, severe, in sustained remission Palpitations with regular cardiac rhythm Polysubstance (excluding opioids) dependence with physiological dependence alcohol, cannabis, methamphetamines with past psychosis Schizoaffective disorder, bipolar type Substance-induced psychotic disorder Tick bite of multiple sites Surgical History History of tonsillectomy and adenoidectomy Hx of hysterectomy Hx of tubal ligation Family History Other Cancer Heart disease Social History (Reviewed 04/26/23 @ 06:53 by YOLANDE Reyna Smoking and tobacco status: current every day smoker Alcohol intake: former Substance/Drug Use: former Date of last use: 2007 Adopted: No Caregiver/support person: No Lives independently: Yes Household members: significant other Housing: Other Marital status: Legally Number of children: 3 Number of grandchildren: 0 Highest education level completed: Bachelor's Degree service: No Current occupational status: employed Current occupation: [employer] in [place], [place] Physical Exam Const: COMMON NORMALS: no acute distress GENERAL APPEARANCE: cooperative and comfortable ORIENTATION/CONSCIOUSNESS: Yes awake, Yes oriented to person, Yes oriented to place and Yes oriented to time HENMT: COMMON NORMALS: normocephalic, atraumatic and hearing grossly normal bilaterally HEAD & SCALP: normocephalic and atraumatic OTHER: Left TM external canal and her right auricle all normal no left-sided cervical lymphadenopathy Eye: COMMON NORMALS: Equal, round and reactive pupils present, EOMs intact bilaterally, conjunctivae normal and no scleral icterus CONJUNCTIVA: Yes conjunctivae normal PUPIL: Yes Equal, round and reactive pupils present Lymph: LYMPHATIC: no lymphadenopathy noted and no lymphedema noted Resp: COMMON NORMALS: normal respiratory effort, No retractions, No use of accessory muscles and clear to auscultation bilaterally AUSCULTATION: clear to auscultation bilaterally Cardio: COMMON NORMALS: regular rate, regular rhythm and No murmurs present (Cardio) RATE: regular rate RHYTHM: regular rhythm Extremity: COMMON NORMALS: normal to inspection, capillary refill normal, no clubbing, cyanosis or edema, no calf tenderness and no pedal edema Neuro: SENSORIUM/ORIENTATION: Yes oriented to person, Yes oriented to place and Yes oriented to time Skin: COMMON NORMALS: no rashes or lesions noted GENERAL SKIN EXAM: no rashes or lesions noted Course Vital Signs: Vital signs: Vital Signs Temperature 97.6 F 04/26/23 05:50 Pulse Rate 70 04/26/23 05:50 Respiratory Rate 16 04/26/23 05:50 Blood Pressure 137/83 04/26/23 05:50 Pulse Oximetry 100 04/26/23 05:50 Oxygen Delivery Me thod Room Air 04/26/23 05:50 MDM - Neck Pain/Injury Medical Decision Making Pain is reproducible with movement at ends of range of motion especially when rotating to the right. No sign of vesicular rash no sign of middle ear infection and believe this is musculoskeletal she refers most of the pain to the base of the mastoid and occiput where the muscle insertion is at. Discharge home with muscle relaxer. Patient lists allergy to aspirin and declines anti-inflammatory and steroids Medical Records I reviewed the patient's medical records. Discharge Plan Discharge Patient Disposition: Home Clinical Impression: Cervical strain, acute Condition: Stable Prescriptions: New tizanidine 4 mg tablet 4 mg PO Q6H PRN (Reason: muscle spasticity) Qty: 20 0RF Rx Instructions: do not exceed 3 doses per 24 hrs No Action acetaminophen [Tylenol] 325 mg capsule 650 mg PO QID PRN (Reason: fever or pain) trazodone 50 mg tablet 100 mg PO .HS PRN (Reason: insomnia) Qty: 60 2RF diphenhydramine HCl [Benadryl] 25 mg capsule 25 mg PO TID PRN cetirizine [Zyrtec] 10 mg tablet 10 mg PO DAILY PRN (Reason: allergy symptoms) Qty: 30 0RF doxycycline hyclate 100 mg capsule 100 mg PO BID Qty: 20 0RF Discharge Orders: Discharge ED (Routine); Ordered 04/26/23 Ordered By: Eliceo Ramos Referrals: Ramesh Canas MD [Primary Care Provider] - Discharge Diet: Usual diet Patient Instructions: Opioid Safety, Pain Management Coding Level of Care Code ED Orthopaedic Physician Assistant for [facility]
== END 2023-04-26 06:41 | disposition home or self-care (01) ==
PROVIDERS: Emergency Provider Family Medicine; PCP Internal Medicine
DX: S16.1XXA Strain of muscle, fascia and tendon at neck level, initial encounter (principal); F17.210 Nicotine dependence, cigarettes, uncomplicated; Z86.19 Personal history of other infectious and parasitic diseases; X58.XXXA Exposure to other specified factors, initial encounter
CPT/HCPCS: 99283

== ENCOUNTER → 2023-08-21 09:21 | Outpatient (BNVA) | payer BC, MEDICAID, SELFPAY | PROVIDERS: PCP Internal Medicine; Visit Provider Nurse Practitioner Family | DX: L70.0 Acne vulgaris (principal); L02.425 Furuncle of right lower limb; L21.8 Other seborrheic dermatitis; B35.3 Tinea pedis; L57.0 Actinic keratosis; L57.8 Other skin changes due to chronic exposure to nonionizing radiation; D22.4 Melanocytic nevi of scalp and neck; L81.4 Other melanin hyperpigmentation | CPT/HCPCS: 17000; 99214 ==

== ENCOUNTER 2024-04-01 21:41 | Emergency (ER) | payer BC, MEDICAID, SELFPAY ==
[2024-04-01 21:48] VITALS: BP 121/87; PULSE 72; RESP 16; TEMP 36.8; O2SAT 97; BMI 25.3
[2024-04-01 21:51] VITALS: BP 117/85; PULSE 60; O2SAT 99
--- NOTE | 2024-04-01 21:59 | XRR_ITS ---
PROCEDURE INFORMATION: Exam: XR Lumbosacral Spine Exam date and time: 04/01/2024 10:10 PM Age: 48 years old Clinical indication: Injury or trauma; Other: Twisted back; Additional info: Fall/back pain TECHNIQUE: Imaging protocol: Radiologic exam of the lumbosacral spine. Views: 2 or 3 views. COMPARISON: CT abdomen pelvis w con* [id number] 04/27/2017 3:45 PM FINDINGS: Bones/joints: No acute fractures or subluxations. Normal sagittal alignment. The vertebral body heights are preserved. The intervertebral disc spaces are preserved. Posterior elements are intact. Mild bilateral facet arthropathy. Soft tissues: Unremarkable. Other findings: Moderate stool burden. XR/XR lumbar spine 2-3V* [id number] IMPRESSION: No acute fractures or subluxations.
--- NOTE | 2024-04-01 21:59 | XRR_ITS ---
PROCEDURE INFORMATION: Exam: XR Cervical Spine Exam date and time: 04/01/2024 10:10 PM Age: 48 years old Clinical indication: Neck pain; Additional info: Fall/neck pain TECHNIQUE: Imaging protocol: Radiologic exam of the cervical spine. Views: 2 or 3 views. COMPARISON: CT cervical spin wo con* [id number] 12/22/2017 8:20 PM FINDINGS: Bones/joints: No acute fractures or subluxations. The dens is intact. Straightening of the normal cervical lordosis. The vertebral body heights are preserved. Small posterior disc osteophyte complexes at the level C4-C5 and C5-C6. The posterior elements are intact. Mild bilateral facet arthropathy. Soft tissues: Unremarkable. XR/XR cervical spine 3V* [id number] IMPRESSION: No acute fractures or subluxations.
--- NOTE | 2024-04-01 21:59 | XRR_ITS ---
PROCEDURE INFORMATION: Exam: XR Thoracic Spine Exam date and time: 04/01/2024 10:10 PM Age: 48 years old Clinical indication: Pain in thoracic spine; Without myelpathy or radiculopathy; Additional info: Fall/back pain TECHNIQUE: Imaging protocol: Radiologic exam of the thoracic spine. Views: 3 views. COMPARISON: CR (NECK, ) 04/01/2024 10:10 PM FINDINGS: Bones/joints: No acute fractures or subluxations. Normal sagittal alignment. The vertebral body heights are preserved. The intervertebral disc spaces are preserved. Posterior elements are intact. Mild degenerative changes with small endplate osteophytes. Soft tissues: Unremarkable. XR/XR thoracic spine 3V* [id number] IMPRESSION: No acute fractures or subluxations.
--- NOTE | 2024-04-01 22:01 | ED_ITS ---
HPI - Back Pain/Injury General: Chief Complaint: Back Pain/Injury Stated Complaint: Back Pain Time Seen by Provider: 04/01/24 21:49 Source: patient Mode of arrival: ambulatory Limitations: no limitations History of Present Illness: Patient is a 48-year-old female presenting to the emergency department complaining of low back and neck pain onset 3 hours ago. Patient states she was cleaning her shower when she slipped and fell, injuring her neck and low back. She has remained ambulatory though states that this does make her pain worse. She states she has injured her back in a similar fashion in the past, though the pain has not been this severe. She denies any issues with bowel or bladder incontinence, distal radiation of pain, distal numbness/weakness/tingling, or other symptoms at this time. She has not taken anything for her pain. MD elicited complaint: back pain Pertinent past history: prior back pain and recent trauma Onset (ago): hour(s) (3) Timing: constant Similar Symptoms Previously: Yes Location: lumbar spine Radiation: none Exacerbating factors: movement Relieving factors: none Context: fall Associated symptoms: Reports no associated symptoms; Deny abdominal pain, chills, fever(s), nausea or vomiting Related Data Home Medications Medication Instructions Recorded Confirmed acetaminophen 325 mg capsule 650 mg PO QID PRN fever or pain 12/14/21 01/25/23 (Tylenol) diphenhydramine HCl 25 mg capsule 25 mg PO TID PRN 04/23/22 01/25/23 (Benadryl) Previous Rx's Medication Instructions Recorded trazodone 50 mg tablet 100 mg (2 x 50 mg) PO .HS PRN 12/14/21 insomnia #60 tabs cetirizine 10 mg tablet (Zyrtec) 10 mg PO DAILY PRN allergy 10/07/22 symptoms #30 tabs doxycycline hyclate 100 mg capsule 100 mg PO BID multiple tick bites 01/25/23 #20 caps tizanidine 4 mg tablet 4 mg PO Q6H PRN muscle spasticity 04/26/23 #20 tabs methocarbamol 750 mg tablet 750 mg PO Q8H 5 days #15 tabs 04/01/24 Allergies Allergy/AdvReac Type Severity Reaction Status Date / Time paliperidone [From Invega] Allergy Severe Akithasia Verified 04/26/23 05:53 fluoxetine [From Prozac] Allergy Intermediate N & V Verified 04/26/23 05:53 amoxicillin Allergy Unknown Verified 04/26/23 05:53 aspirin Allergy swelling Verified 04/26/23 05:53 ciprofloxacin [From Cipro] Allergy Unknown Verified 04/26/23 05:53 dexamethasone Allergy increased Verified 04/26/23 05:53 heart rate erythromycin base Allergy rash Verified 04/26/23 05:53 fentanyl Allergy swelling Verified 04/26/23 05:53 hydrocodone Allergy swelling Verified 04/26/23 05:53 Sulfa (Sulfonamide Allergy ALGY-Rash Verified 04/26/23 05:53 Antibiotics) Review of Systems General: Reports: 10 or more systems reviewed and unremarkable except in HPI and below Const: Reports: other (fall); Denies: fever(s) or chills Card: Denies: chest pain Resp: Denies: dyspnea or productive cough GI: Denies: abdominal pain, nausea, vomiting or diarrhea : Denies: flank pain Musc: Reports: neck pain and back pain; Denies: extremity pain, extremity swelling, joint pain, joint swelling, joint redness, joint warmth, limited range of motion or muscle weakness Skin/Breast: Denies: rash Neuro: Denies: headache(s), numbness in extremities or weakness in extremities PFSH ED PFSH: Medical History Polysubstance (excluding opioids) dependence with physiological dependence alcohol, cannabis, methamphetamines with past psychosis Tick bite of multiple sites Palpitations with regular cardiac rhythm 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, severe, in sustained remission Alcohol use disorder, moderate, in early remission Cannabis use disorder, severe, dependence Akathisia Schizoaffective disorder, bipolar type Insomnia Anxiety about health Hepatitis C Chronic pain disorder History of endometrial hyperplasia Gastroenteritis Genital herpes Glycosuria Surgical History History of tonsillectomy and adenoidectomy Hx of tubal ligation Hx of hysterectomy Family History Other Cancer Heart disease Social History Smoking and tobacco/nicotine status: current every day tobacco/nicotine user Alcohol intake: former Substance/Drug Use: former Date of last use: 2007 Adopted: No Caregiver/support person: No Lives independently: Yes Household members: significant other Housing: Other Marital status: Legally Number of children: 3 Number of grandchildren: 0 Highest education level completed: Bachelor's Degree service: No Current occupational status: employed Current occupation: [employer] in [place], [place] Physical Exam Const: COMMON NORMALS: no acute distress, patient oriented x3, no limitations, healthy appearing, alert and well nourished HENMT: COMMON NORMALS: normocephalic and atraumatic HEAD & SCALP: normocephalic and atraumatic Neck/C-Spine: COMMON NORMALS: full ROM, supple and no meningeal signs GENERAL: Yes normal visual inspection CERVICAL SPINE: Yes cervical ROM normal, Yes normal cervical lordosis, No pain with cervical ROM, No Cervical spine tenderness and No Paracervical muscle tenderness Resp: COMMON NORMALS: normal respiratory effort, No use of accessory muscles and clear to auscultation bilaterally AUSCULTATION: clear to auscultation bilaterally Cardio: COMMON NORMALS: regular rate and regular rhythm RATE: regular rate RHYTHM: regular rhythm Back/Pelvis: COMMON NORMALS: thoracic and lumbar spine normal to inspection, no thoracic nor lumbar tenderness, thoraco-lumbar ROM normal and straight leg raise negative bilaterally Extremity: COMMON NORMALS: normal to inspection, full ROM, capillary refill normal, no joint enlargement and no clubbing, cyanosis or edema Neuro: COMMON NORMALS: patient oriented x3, moves all extremities, no focal motor deficits and no sensory deficits noted SENSORIUM/ORIENTATION: Yes alert MENINGEAL SIGNS: Yes no meningeal signs Skin: COMMON NORMALS: no rashes or lesions noted GENERAL SKIN EXAM: no rashes or lesions noted Course Vital Signs: Vital signs: Vital Signs Temperature 98.2 F 04/01/24 21:48 Pulse Rate 72 04/01/24 21:48 Respiratory Rate 16 04/01/24 21:48 Blood Pressure 121/87 04/01/24 21:48 Pulse Oximetry 97 04/01/24 21:48 Oxygen Delivery Me thod Room Air 04/01/24 21:48 MDM - Back Pain/Injury Medical Decision Making Patient arrives for evaluation of low back pain and neck pain after falling in the shower a few hours prior to arrival. History of similar back pain, she did not take anything prior to arrival for pain. She had no red flag back symptoms reported or on examination, vitals normal. She declined IM medications and states she would rather be sent home with them. Additionally x-rays did not demonstrate any acute findings in her back. She is informed to follow-up with primary care for any further pain and take medications as prescribed. Reasons to return discussed. Labs Radiology Impressions Cervical Spine X-Ray 04/01/24 21:59 IMPRESSION: No acute fractures or subluxations. Lumbar Spine X-Ray 04/01/24 21:59 IMPRESSION: No acute fractures or subluxations. Thoracic Spine X-Ray 04/01/24 21:59 IMPRESSION: No acute fractures or subluxations. All radiology interpretation(s) finalized by discharge Discharge Plan Discharge Patient Disposition: Home Clinical Impression: Contusion of lower back, Neck strain Condition: Stable Prescriptions: New methocarbamol 750 mg tablet 750 mg PO Q8H 5 Days Qty: 15 0RF No Action acetaminophen [Tylenol] 325 mg capsule 650 mg PO QID PRN (Reason: fever or pain) trazodone 50 mg tablet 100 mg PO .HS PRN (Reason: insomnia) Qty: 60 2RF diphenhydramine HCl [Benadryl] 25 mg capsule 25 mg PO TID PRN cetirizine [Zyrtec] 10 mg tablet 10 mg PO DAILY PRN (Reason: allergy symptoms) Qty: 30 0RF doxycycline hyclate 100 mg capsule 100 mg PO BID Qty: 20 0RF tizanidine 4 mg tablet 4 mg PO Q6H PRN (Reason: muscle spasticity) Qty: 20 0RF Rx Instructions: do not exceed 3 doses per 24 hrs Discharge Orders: Discharge ED (Routine); Ordered 04/01/24 Ordered By: Gerald Peterson Referrals: Kimo Quiñones MD [Primary Care Provider] - Discharge Diet: Usual diet Discharge Activity: Increase activity as tolerated Patient Instructions: Cervical Strain (ED), Lower Back Exercises (ED) Activity Restrictions/Additional Instructions: Muscle relaxer. Take pain medications at home. Gentle range of motion exercises as tolerated. If you continue to have pain please follow-up with your primary care provider. Return with any new or worsening. Coding Level of Care Code ED Vending Machine Attendant for [facility]
[2024-04-01] MEDS: methocarbamol 500 mg Tablet PO (23:05)
[2024-04-01] MEDS: ketorolac 10 mg Tablet PO (23:05)
== END 2024-04-01 23:15 | disposition home or self-care (01) ==
PROVIDERS: Emergency Provider Physician Assistant; PCP Family Medicine
DX: S30.0XXA Contusion of lower back and pelvis, initial encounter (principal); S16.1XXA Strain of muscle, fascia and tendon at neck level, initial encounter; Z72.0 Tobacco use; Z86.19 Personal history of other infectious and parasitic diseases; W18.2XXA Fall in (into) shower or empty bathtub, initial encounter
CPT/HCPCS: 72040; 72072; 72100; 99284

== ENCOUNTER 2024-04-20 00:39 | Emergency (ER) | payer MEDICAID, SELFPAY | END 2024-04-20 01:46 | disposition left against medical advice (07) | PROVIDERS: Emergency Provider Family Medicine; PCP Family Medicine | DX: Z53.21 Procedure and treatment not carried out due to patient leaving prior to being seen by health care provider (principal) ==

== ENCOUNTER 2024-05-14 18:59 | Emergency (ER) | payer BC, MEDICAID, SELFPAY ==
[2024-05-14 19:10] VITALS: BP 127/87; PULSE 89; RESP 16; TEMP 36.7; O2SAT 98; BMI 25.2
[2024-05-14 19:26] VITALS: BP 131/71; PULSE 91; RESP 16; O2SAT 99
[2024-05-14 20:07] VITALS: BP 121/80; PULSE 81; RESP 16; O2SAT 97
--- NOTE | 2024-05-14 22:48 | W.ED.OVERDOS ---
HPI - Overdose General: Chief Complaint: Overdose Stated Complaint: anxiety, dry mouth weakness sweating L side cold Time Seen by Provider: 05/14/24 19:14 Source: patient Mode of arrival: EMS Limitations: no limitations History of Present Illness: Patient is a 48-year-old female presents to the emergency department by ambulance after marijuana use today. States she tried a new strain of marijuana, subsequently developed palpitations, hyperventilation, sore throat, paresthesias, and overall increase in her anxiety. Does not currently take anything for anxiety. She is very tangential with her conversation and is clearly anxious at this time. Her vitals are normal on arrival, states she thinks she is having an allergic reaction to what ever she took. She did take this about an hour or so prior to arrival, and called ambulance. Related Data Home Medications Medication Instructions Recorded Confirmed acetaminophen 325 mg capsule 650 mg PO QID PRN fever or pain 12/14/21 01/25/23 (Tylenol) diphenhydramine HCl 25 mg capsule 25 mg PO TID PRN 04/23/22 01/25/23 (Benadryl) Previous Rx's Medication Instructions Recorded trazodone 50 mg tablet 100 mg (2 x 50 mg) PO .HS PRN 12/14/21 insomnia #60 tabs cetirizine 10 mg tablet (Zyrtec) 10 mg PO DAILY PRN allergy 10/07/22 symptoms #30 tabs doxycycline hyclate 100 mg capsule 100 mg PO BID multiple tick bites 01/25/23 #20 caps tizanidine 4 mg tablet 4 mg PO Q6H PRN muscle spasticity 04/26/23 #20 tabs Allergies Allergy/AdvReac Type Severity Reaction Status Date / Time paliperidone [From Invega] Allergy Severe Akithasia Verified 04/26/23 05:53 fluoxetine [From Prozac] Allergy Intermediate N & V Verified 04/26/23 05:53 amoxicillin Allergy Unknown Verified 04/26/23 05:53 aspirin Allergy swelling Verified 04/26/23 05:53 ciprofloxacin [From Cipro] Allergy Unknown Verified 04/26/23 05:53 dexamethasone Allergy increased Verified 04/26/23 05:53 heart rate erythromycin base Allergy rash Verified 04/26/23 05:53 fentanyl Allergy swelling Verified 04/26/23 05:53 hydrocodone Allergy swelling Verified 04/26/23 05:53 Sulfa (Sulfonamide Allergy ALGY-Rash Verified 04/26/23 05:53 Antibiotics) Review of Systems General: Reports: 10 or more systems reviewed and unremarkable except in HPI and below Const: Reports: other (Marijuana use); Denies: fever(s), chills or fatigue Eyes: Denies: change in vision ENMT: Reports: throat pain; Denies: ear or mastoid pain or nasal discharge Card: Reports: palpitations; Denies: chest pain, swelling of feet/ankles or lightheadedness Resp: Reports: other (Increased respiration); Denies: dyspnea, productive cough or wheezing GI: Denies: abdominal pain, nausea, vomiting, diarrhea or constipation : Denies: flank pain, difficulty voiding, dysuria or urinary frequency Musc: Denies: neck pain, back pain or joint pain Skin/Breast: Denies: rash Neuro: Reports: numbness in extremities and sensory changes; Denies: headache(s) or weakness in extremities Psych: Reports: anxiety PFSH ED PFSH: Medical History Polysubstance (excluding opioids) dependence with physiological dependence alcohol, cannabis, methamphetamines with past psychosis Tick bite of multiple sites Palpitations with regular cardiac rhythm 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, severe, in sustained remission Alcohol use disorder, moderate, in early remission Cannabis use disorder, severe, dependence Akathisia Schizoaffective disorder, bipolar type Insomnia Anxiety about health Hepatitis C Chronic pain disorder History of endometrial hyperplasia Gastroenteritis Genital herpes Glycosuria Surgical History History of tonsillectomy and adenoidectomy Hx of tubal ligation Hx of hysterectomy Family History Other Cancer Heart disease Social History Smoking and tobacco/nicotine status: current every day tobacco/nicotine user Alcohol intake: former Substance/Drug Use: former Date of last use: 2007 Adopted: No Caregiver/support person: No Lives independently: Yes Household members: significant other Housing: Other Marital status: Legally Number of children: 3 Number of grandchildren: 0 Highest education level completed: Bachelor's Degree service: No Current occupational status: employed Current occupation: [employer] in [place], [place] Physical Exam Const: COMMON NORMALS: no acute distress, patient oriented x3 and no limitations GENERAL APPEARANCE: cooperative, well developed and anxious ORIENTATION/CONSCIOUSNESS: Yes awake, Yes oriented to person, Yes oriented to place and Yes oriented to time HENMT: COMMON NORMALS: normocephalic, atraumatic and hearing grossly normal bilaterally HEAD & SCALP: normocephalic and atraumatic Eye: COMMON NORMALS: Equal, round and reactive pupils present, EOMs intact bilaterally and conjunctivae normal CONJUNCTIVA: Yes conjunctivae normal PUPIL: Yes Equal, round and reactive pupils present Neck/C-Spine: COMMON NORMALS: full ROM, supple and no JVD Resp: COMMON NORMALS: normal respiratory effort, No retractions, No use of accessory muscles and clear to auscultation bilaterally AUSCULTATION: clear to auscultation bilaterally Cardio: COMMON NORMALS: no JVD, regular rate, regular rhythm, No clicks present (Cardio), No murmurs present (Cardio) and No rub (Cardio) RATE: regular rate RHYTHM: regular rhythm GI: COMMON NORMALS: Normal to inspection, nondistended, normoactive bowel sounds present, Soft to palpation and non-tender AUSCULTATION: Yes normoactive bowel sounds PALPATION: Yes Soft to palpation RECTAL EXAM: deferred Extremity: COMMON NORMALS: normal to inspection, full ROM and capillary refill normal Neuro: COMMON NORMALS: patient oriented x3, CN's II-XII intact bilaterally, moves all extremities, no focal motor deficits and no sensory deficits noted SENSORIUM/ORIENTATION: Yes oriented to person, Yes oriented to place and Yes oriented to time Psych: COMMON NORMALS: mental status grossly normal and speech normal SPEECH: Yes normal speech MOOD & AFFECT: Yes anxious THOUGHT PROCESS: Tangential thought process present Skin: COMMON NORMALS: no rashes or lesions noted GENERAL SKIN EXAM: no rashes or lesions noted Course Vital Signs: Vital signs: Vital Signs Temperature 98.0 F 05/14/24 19:10 Pulse Rate 81 05/14/24 20:07 Respiratory Rate 16 05/14/24 20:07 Blood Pressure 121/80 05/14/24 20:07 Pulse Oximetry 97 05/14/24 20:07 Oxygen Delivery Me thod Room Air 05/14/24 19:26 MDM - Overdose Medical Decision Making Patient called ambulance after having symptoms following marijuana use. Reportedly she has had similar instances with drug use in the past and has a history of polysubstance abuse. She is clearly anxious at time of examination, states she does not take anything for anxiety. Her vitals have been normal and she has been monitored here in the emergency department for approximately 30 minutes with improvement of her symptoms noted. Informed her to quit taking marijuana and to follow-up with her primary care provider for any further evaluation. No radiology studies performed this visit Discharge Plan Discharge Patient Disposition: Home Clinical Impression: Anxiety about health, Marijuana use Condition: Stable Prescriptions: No Action acetaminophen [Tylenol] 325 mg capsule 650 mg PO QID PRN (Reason: fever or pain) trazodone 50 mg tablet 100 mg PO .HS PRN (Reason: insomnia) Qty: 60 2RF diphenhydramine HCl [Benadryl] 25 mg capsule 25 mg PO TID PRN cetirizine [Zyrtec] 10 mg tablet 10 mg PO DAILY PRN (Reason: allergy symptoms) Qty: 30 0RF doxycycline hyclate 100 mg capsule 100 mg PO BID Qty: 20 0RF tizanidine 4 mg tablet 4 mg PO Q6H PRN (Reason: muscle spasticity) Qty: 20 0RF Rx Instructions: do not exceed 3 doses per 24 hrs Discharge Orders: Discharge ED (Routine); Ordered 05/14/24 Ordered By: Gerald Peterson Referrals: Kimo Quiñones MD [Primary Care Provider] - Discharge Diet: Usual diet Discharge Activity: Increase activity as tolerated Patient Instructions: Anxiety (ED) Activity Restrictions/Additional Instructions: Please follow-up with your primary care provider as discussed. Avoid marijuana use. Return with any new or worsening symptoms you may have. Coding Level of Care Code ED Employment Instruction[employer] for [employer]
== END 2024-05-14 20:10 | disposition home or self-care (01) ==
PROVIDERS: Emergency Provider Physician Assistant; PCP Family Medicine
DX: F12.90 Cannabis use, unspecified, uncomplicated (principal); F41.9 Anxiety disorder, unspecified
CPT/HCPCS: 99283

== ENCOUNTER → 2025-02-27 09:03 | Outpatient (BNVA) | payer MEDICAID, SELFPAY | PROVIDERS: PCP Family Medicine; Visit Provider Nurse Practitioner Family | DX: S80.262A Insect bite (nonvenomous), left knee, initial encounter (principal); L70.0 Acne vulgaris; L73.9 Follicular disorder, unspecified; I78.1 Nevus, non-neoplastic; D23.72 Other benign neoplasm of skin of left lower limb, including hip; L57.8 Other skin changes due to chronic exposure to nonionizing radiation; X58.XXXA Exposure to other specified factors, initial encounter | CPT/HCPCS: 99214 ==

== ENCOUNTER → 2025-08-15 18:13 | Outpatient (BNVA) | payer MEDICAID, SELFPAY | PROVIDERS: PCP Family Medicine; Visit Provider Family Medicine Adult Medicine | DX: R09.81 Nasal congestion (principal) | CPT/HCPCS: 87400; 87426 ==